=== PATIENT | female | born 1960 | race Caucasian/White ===

== ENCOUNTER 2016-12-19 14:05 | Emergency (ER) | payer OTHER ==
--- NOTE | 2016-12-19 14:11 | UC ---
Lower Extremity/Ankle HPI - HPI Summary HPI Summary: 56 year old female presents with complains of severe right calf pain. She is concerned about DVT so I will sen dher to the ER for U/S and CBC. I spoke to Izabel Mireles. - History of Current Complaint Stated Complaint: RIGHT LEG PAIN X 5 DAYS Time Seen by Provider: 12/19/16 14:08 Hx Last Menstrual Period: 1995 - Allergies/Home Medications Allergies/Adverse Reactions: Allergies Allergy/AdvReac Type Severity Reaction Status Date / Time Bee Venom Allergy Severe Edema Verified 12/19/16 14:24 Latex Allergy Intermediate itch Verified 12/19/16 14:24 Morphine AdvReac Mild Itching Verified 12/19/16 14:24 Home Medications: Home Medications Omeprazole CAP* [Prilosec CAP* 20 MG] 20 mg PO DAILY 12/19/16 [History Confirmed 12/19/16] PMH/Surg Hx/FS Hx/Imm Hx - Surgical History Surgical History: Yes Surgery Procedure, Year, and Place: 2 . left elbow surgery. partial hysterectomy. thyroidectomy. fatty tumor removed from back - Family History Known Family History: Positive: Hypertension - Social History Alcohol Use: Rare Substance Use Type: None Smoking Status (MU): Never Smoked Tobacco Review of Systems Constitutional: Negative Skin: Negative Eyes: Negative ENT: Negative Respiratory: Negative Cardiovascular: Negative Gastrointestinal: Negative Genitourinary: Negative Motor: Negative Neurovascular: Negative Musculoskeletal: Negative, Calf Tenderness - right Neurological: Negative Psychological: Negative All Other Systems Reviewed And Are Negative: Yes Physical Exam Triage Information Reviewed: Yes Eye Exam: Normal ENT Exam: Normal Dental Exam: Normal Neck exam: Normal Neck: Positive: 1 Respiratory Exam: Normal Cardiovascular Exam: Normal Abdominal Exam: Normal Musculoskeletal: Positive: Other: - right calf pain Neurological Exam: Normal Psychological Exam: Normal Skin Exam: Normal Lower Extremity Course/Dx - Differential Dx/Diagnosis Provider Diagnoses: right calf pain/swelling Discharge - Discharge Plan Condition: Stable Disposition: AGAINST MEDICAL ADVICE Patient Education Materials: Muscle Cramp (ED), Leg Pain (ED) Referrals: COOPER Scott [Primary Care Provider] -
[2016-12-19 14:24] VITALS: BP 114/70
== END 2016-12-19 14:35 | disposition left against medical advice (07) ==
LOC: UCCORT 14:05
DX: M79.661 Pain in right lower leg (principal); Z88.5 Allergy status to narcotic agent
CPT/HCPCS: 99212; G0463

== ENCOUNTER 2017-02-13 15:10 | Emergency (ER) | payer OTHER ==
[2017-02-13 15:31] VITALS: BP 118/70
[2017-02-13] MEDS ORDERED: Ketorolac INJ* 30 MG/ML 1 ML VIAL IM ONE (15:58)
--- NOTE | 2017-02-13 16:03 | UC ---
Minor Trauma HPI - HPI Summary HPI Summary: 56 yo female tripped and fell on recently resurfaced side walk hit right knee and chin wrenched back occurred yesterday no loc states she can not tolerate NSAIDS - History of Current Complaint Chief Complaint: UCLowerExtremity Stated Complaint: RIGHT SIDE BACK,KNEE,FACE INJURY FALL 02/13 Time Seen by Provider: 02/13/17 15:50 Hx Obtained From: Patient Hx Last Menstrual Period: 1995 Onset/Duration: Sudden Onset, Lasting Hours Onset Of Pain: Immediate Severity Initially: Moderate Severity Currently: Moderate Pain Intensity: 6 Pain Scale Used: 0-10 Numeric Mechanism Of Injury: Fall From A Standing Position Aggravating Factor(s): Movement Alleviating Factor(s): Rest Associated Signs And Symptoms: Negative: Loss Of Consciousness, Ecchymosis, Swelling - Risk Factors Penetrating Injury Risk Factors: Negative - Allergies/Home Medications Allergies/Adverse Reactions: Allergies Allergy/AdvReac Type Severity Reaction Status Date / Time Bee Venom Allergy Severe Edema Verified 02/13/17 15:31 Latex Allergy Intermediate itch Verified 02/13/17 15:31 Morphine AdvReac Mild Itching Verified 02/13/17 15:31 Home Medications: Home Medications Levothyroxine TAB* [Synthroid 75 MCG TAB*] 75 mcg PO DAILY 02/13/17 [History Confirmed 02/13/17] Prazosin CAP* [Minipress CAP*] 5 mg PO BEDTIME 02/13/17 [History Confirmed 02/13] PMH/Surg Hx/FS Hx/Imm Hx Previously Healthy: Yes Endocrine History: Thyroid Disease, Hypothyroidism, Dyslipidemia Cardiovascular History: Hypertension Cancer History: Other Other Cancer History: thyroid - Surgical History Surgical History: Yes Surgery Procedure, Year, and Place: 2 . left elbow surgery. partial hysterectomy. thyroidectomy. fatty tumor removed from back - Family History Known Family History: Positive: Hypertension - Social History Alcohol Use: None Substance Use Type: None Smoking Status (MU): Never Smoked Tobacco Review of Systems Constitutional: Negative Skin: Negative Eyes: Negative ENT: Negative Respiratory: Negative Cardiovascular: Negative Gastrointestinal: Negative Genitourinary: Negative Motor: Negative Neurovascular: Negative Musculoskeletal: Arthralgia Neurological: Negative Psychological: Negative Is Patient Immunocompromised?: No All Other Systems Reviewed And Are Negative: Yes Physical Exam Triage Information Reviewed: Yes Appearance: Well-Appearing, No Pain Distress, Well-Nourished Vital Signs: Initial Vital Signs Temp 98.1 F 02/13/17 15:24 Pulse 87 02/13/17 15:24 Resp 20 02/13/17 15:24 BP 118/70 02/13/17 15:24 Pulse Ox 96 02/13/17 15:24 Vital Signs Reviewed: Yes Eyes: Positive: Conjunctiva Clear ENT: Positive: Hearing grossly normal, TMs normal. Negative: Nasal congestion, Nasal drainage, Trismus, Muffled/hoarse voice Dental: Positive: Other: - edentulous Neck: Positive: Supple, Nontender, No Lymphadenopathy Respiratory: Positive: Lungs clear, Normal breath sounds, No respiratory distress, No accessory muscle use Cardiovascular: Positive: RRR, No Murmur Musculoskeletal: Positive: ROM Intact, No Edema Neurological: Positive: Alert Psychological Exam: Normal Skin Exam: Other - contusion right knee Diagnostics - Radiology No standard instances Xray Interpretation: No Acute Changes Radiology Interpretation Completed By: Radiologist Minor Trauma Course/Dx - Differential Dx/Diagnosis Provider Diagnoses: acute lumbar myofascial strain/spasm. jaw contusion. knee contusion (R) Discharge - Discharge Plan Condition: Stable Disposition: HOME Patient Education Materials: Contusion in Adults (ED), Low Back Strain (ED) Referrals: COOPER Scott [Primary Care Provider] - Images Head: 1 - tender/swollen/no TMJ crepitus Front/Back of Body, Lg ([place]): 1 - contusion/mild swelling/FROM/normal gait/no effusion 2 - tender
--- NOTE | 2017-02-13 16:40 | RAD ---
INDICATION: Mandibular injury COMPARISON: None TECHNIQUE: Multiple views of the mandible were obtained FINDINGS: No acute plain radiographic abnormalities of the mandible are identified. If there is persistent concern, CT imaging can be obtained. The patient is edentulous. IMPRESSION: NEGATIVE PLAIN RADIOGRAPHIC EVALUATION OF THE MANDIBLE
== END 2017-02-13 17:08 | disposition home or self-care (01) ==
LOC: UCCORT 15:10
DX: S00.83XA Contusion of other part of head, initial encounter (principal); S39.012A Strain of muscle, fascia and tendon of lower back, initial encounter; S80.01XA Contusion of right knee, initial encounter; W18.30XA Fall on same level, unspecified, initial encounter; Y92.9 Unspecified place or not applicable
CPT/HCPCS: 70110; 96372; 99212; G0463; J1885

== ENCOUNTER 2017-04-15 15:17 | Emergency (ER) | payer OTHER ==
--- NOTE | 2017-04-15 15:30 | UC ---
Lower Extremity/Ankle HPI - HPI Summary HPI Summary: 56 year old female presents with right knee pain secondary to a fall. She was in the ER 3 days ago and a xray of her knee was negative. - History of Current Complaint Stated Complaint: RIGHT KNEE AND LEG PAIN Time Seen by Provider: 04/15/17 15:30 Hx Obtained From: Patient Hx Last Menstrual Period: 1995 Onset/Duration: Sudden Onset Severity Initially: Moderate Severity Currently: Moderate Pain Scale Used: 0-10 Numeric - 7 - Allergies/Home Medications Allergies/Adverse Reactions: Allergies Allergy/AdvReac Type Severity Reaction Status Date / Time Bee Venom Allergy Severe Edema Verified 04/15/17 15:47 Latex Allergy Intermediate itch Verified 04/15/17 15:47 Morphine AdvReac Mild Itching Verified 04/15/17 15:47 PMH/Surg Hx/FS Hx/Imm Hx Previously Healthy: Yes - Surgical History Surgical History: Yes Surgery Procedure, Year, and Place: 2 . left elbow surgery. partial hysterectomy. thyroidectomy. fatty tumor removed from back - Family History Known Family History: Positive: Hypertension - Social History Alcohol Use: None Substance Use Type: None Smoking Status (MU): Never Smoked Tobacco Review of Systems Constitutional: Negative Skin: Negative Eyes: Negative ENT: Negative Respiratory: Negative Cardiovascular: Negative Gastrointestinal: Negative Genitourinary: Negative Motor: Negative Neurovascular: Negative Musculoskeletal: Decreased ROM, Myalgia, Other: - right knee pain/swelling Neurological: Negative Psychological: Negative All Other Systems Reviewed And Are Negative: Yes Physical Exam Triage Information Reviewed: Yes Vital Signs Reviewed: Yes Eye Exam: Normal ENT Exam: Normal Dental Exam: Normal Neck exam: Normal Neck: Positive: 1 Respiratory Exam: Normal Cardiovascular Exam: Normal Abdominal Exam: Normal Musculoskeletal: Positive: Other: - right knee pain/swelling Neurological Exam: Normal Psychological Exam: Normal Skin Exam: Normal Lower Extremity Course/Dx - Differential Dx/Diagnosis Provider Diagnoses: right knee swelling/pain/strain Discharge - Discharge Plan Condition: Stable Disposition: HOME Prescriptions: Meloxicam(NF) [Mobic(NF)] 7.5 mg PO BID #30 tab Patient Education Materials: Knee Pain (ED), Swollen Joint (ED) Referrals: Kt Calles MD [Medical Doctor] - COOPER Scott [Primary Care Provider] -
[2017-04-15 15:57] VITALS: BP 108/75
== END 2017-04-15 16:01 | disposition home or self-care (01) ==
LOC: UCCORT 15:17
DX: S86.911D Strain of unspecified muscle(s) and tendon(s) at lower leg level, right leg, subsequent encounter (principal); W19.XXXD Unspecified fall, subsequent encounter; Z90.711 Acquired absence of uterus with remaining cervical stump; E89.0 Postprocedural hypothyroidism; Z88.5 Allergy status to narcotic agent; Z91.030 Bee allergy status; Z91.040 Latex allergy status
CPT/HCPCS: 99212; G0463

== ENCOUNTER 2017-07-15 09:47 | Day surgery (SDC) | payer OTHER ==
--- NOTE | 2017-07-11 02:32 | HP ---
PREOPERATIVE HISTORY AND PHYSICAL: DATE OF SURGERY: 07/15/17 DATE OF OFFICE VISIT: 07/07/17 ATTENDING PHYSICIAN: Dr. Nicole Steward.* (DCTATED BY KYLAH LÓPEZ) PROCEDURE: Right knee arthroscopy, partial meniscectomy. CHIEF COMPLAINT: Right knee pain. HISTORY OF PRESENT ILLNESS: Lenka is a 56-year-old female who presents to the clinic for right knee pain due to a meniscus tear as she has failed conservative measures to include physical therapy and has therefore agreed to undergo a right knee arthroscopy, partial meniscectomy with Dr. Steward on . PAST MEDICAL HISTORY: Hypertension, high cholesterol, osteoarthritis, Crohn's, diverticulitis, GERD, history of thyroid cancer, depression, anxiety, fibromyalgia. PAST SURGICAL HISTORY: Two C-sections, thyroidectomy, surgery on her back, bowel obstruction surgery. The patient denies prior complications with anesthesia. MEDICATIONS: 1. Omeprazole 20 mg 1 by mouth every day. 2. Pravastatin 20 mg 1 by mouth daily. 3. Meloxicam 7.5 one by mouth daily. 4. Fluoxetine 40 mg 1 by mouth twice a day. 5. Levothyroxine 137 mcg 1 by mouth daily. 6. Pravastatin 5 mg 1 by mouth daily. 7. Senna 8.6 mg 1 by mouth daily. 8. Aspirin 81 mg 1 daily. 9. Calcitriol 0.5 mcg 1 daily. ALLERGIES: MORPHINE, LATEX, BEE STING and IBUPROFEN. FAMILY HISTORY: Positive for diabetes in her father as well as cancer. SOCIAL HISTORY: She lives with her daughter. She is not working. She denies tobacco, alcohol or illegal drug use. REVIEW OF SYSTEMS: A 14-point review of systems was reviewed with the patient. Positive for the current complaint, otherwise negative. Negative for fever, chills, chest pain, shortness of breath, history of bleeding disorder, history of DVT or PE. PHYSICAL EXAMINATION GENERAL: A 56-year-old well-developed, well-nourished female, in no acute distress. Alert and oriented x3. Appropriate mood and affect. VITAL SIGNS: Height 64.5, weight 191, pulse 66, blood pressure 130/74, respiratory rate 16, BMI 32.3. HEENT: Normocephalic, atraumatic. PERRLA. Throat clear. NECK: Supple. PULMONARY: Lungs clear to auscultation bilaterally. No wheezing, rhonchi, or rales. CARDIOVASCULAR: Regular rate and rhythm. S1 and S2. No murmurs, gallops, or rubs. No edema. ABDOMEN: Positive bowel sounds, soft, nontender. NEUROLOGIC: Alert and oriented x3. Cranial nerves grossly intact. Sensation is intact to light touch. MUSCULOSKELETAL: Skin is intact. No evidence of erythema. Mild effusion. Range of motion 0 to 130. Tender over the patellar facets and medial joint line. Positive Bebe. Pain with deep flexion. Stable with varus and valgus stress. Stable Jessica. Negative posterior drawer. +2 DP pulse. Calves soft, nontender. Sensation is intact to light touch distally. DIAGNOSTIC STUDIES/LAB DATA: MRI of the right knee reveals degenerative meniscus tear with a knee effusion. IMPRESSION: Right knee meniscus tear. PLAN: The patient is scheduled to undergo a right knee arthroscopy, partial meniscectomy with Dr. Steward on 07/15/17. She will follow up in 10 to 14 days for postoperative followup and suture removal. Percocet was sent to the patient 's pharmacy for postop pain management. KYLAH LÓPEZ [id number]/[facility] #: [id number] MTDJanie
[~2017-07-15 09:47] MED LIST: Buffered Lidocaine 0.9% SYRIN* 5 ML/SYR SYRINGE INTRADERM ONE; Dexamethasone IV* 4 MG/ML 1 ML (4 MG) IV SLOW PU ONE; Famotidine IV* 10 MG/ML 2 ML (20 mg) IV ONE
[2017-07-15] MEDS ORDERED: Famotidine IV* 10 MG/ML 2 ML (20 mg) ONE (09:52)
[2017-07-15] MEDS ORDERED: Dexamethasone IV* 4 MG/ML 1 ML (4 MG) ONE (09:52)
[2017-07-15] MEDS ORDERED: ceFAZolin 2 GM in 100 MLS NS (*) BAG IVPB ONE (09:52)
[2017-07-15] MEDS ORDERED: Lidocaine 1% MPF wEPI 200,000* 30 ML SDV ONE (10:43)
[2017-07-15] MEDS ORDERED: Bupivacaine 0.25% SDV* 30 ML ONE (10:43)
[2017-07-15] MEDS ORDERED: Midazolam* 1 MG/ML 2 ML VIAL (2 MG) ONE (11:06)
[2017-07-15] MEDS ORDERED: fentaNYL* 50 MCG/ML 2 ML VIAL (100 MCG VIAL) ONE ×2 (11:06→12:10)
[2017-07-15] MEDS ORDERED: Lidocaine 2% PF * 5 ML VIAL ONE (11:11)
[2017-07-15] MEDS ORDERED: Propofol* 10 MG/ML 20 ML BTL IV PUSH ONE (11:11)
[2017-07-15] MEDS ORDERED: Ketorolac INJ* 30 MG/ML 1 ML VIAL ONE (11:23)
[2017-07-15] MEDS ORDERED: fentaNYL* 50 MCG/ML 2 ML VIAL (100 MCG VIAL) IV PRN (11:46)
[2017-07-15] MEDS ORDERED: Naloxone* 0.4 MG/ML 1 ML VIAL IV PRN (11:46)
[2017-07-15] MEDS ORDERED: HYDROcodone/ACETAMIN 5-325 MG* 1 TAB PO PRN (11:46)
[2017-07-15] MEDS ORDERED: oxyCODONE/Acetamin 5/325 MG* TAB PO PRN (11:46)
[2017-07-15] MEDS ORDERED: PROCHLORPERAZINE INJ 5 MG/ML 2 ML VIAL IV PRN (11:46)
[2017-07-15] MEDS ORDERED: methylPREDNISolone ACETATE 80* 80 MG/ML 1 ML VIAL ONE (12:01)
[2017-07-15] MEDS ORDERED: Ondansetron INJ* 2 MG/ML VIAL ONE (12:02)
[2017-07-15 13:31] VITALS: BP 102/50
[2017-07-15] MEDS ORDERED: oxyCODONE/Acetamin 5/325 MG* TAB ONE (13:46)
--- NOTE | 2017-07-16 12:14 | OP ---
CC: PCP OPERATIVE REPORT: DATE OF OPERATION: 07/15/17 DATE OF : 56 ATTENDING SURGEON: Nicole Steward MD INFORMATION WRITER: None available. ANESTHESIOLOGIST: Dr. Diaz. ANESTHESIA: General. PRE-OP DIAGNOSIS: Right knee medial meniscus tear with mild osteoarthritis. POST-OP DIAGNOSES: Right knee mild osteoarthritis to the medial and patellofemoral compartment, medi al meniscus tear with unstable flap at the posterior root and lateral meniscal fraying. OPERATIVE PROCEDURES: Right knee arthroscopy with: 1. Partial medial and partial lateral meniscectomy. 2. Chondroplasty of the medial femoral condyle and patella. 3. Synovectomy. COMPLICATIONS: None. ESTIMATED BLOOD LOSS: Minimal. INDICATIONS: Lenka Conde is a 56-year-old female with medially based catching and locking symptoms. She has failed conservative treatment including physical therapy, injection, and anti-inflammatories . She had minimal drainage based on preoperative films and an unstable acute tear of the medial meni scus. Risks and benefits of surgery were discussed at length and included but not limited to bleedin g, infection, damage to nerves, vessels, surrounding structures, wound nonhealing, persistent pain, n eed for surgery, scarring, stiffness, incomplete release of symptoms, and risks of anesthesia. She h as elected to proceed. DESCRIPTION OF PROCEDURE: The patient was greeted in the preoperative area by the attending surgeon. Correct extremity was marked and consent was confirmed. The patient was brought back to the operat ing suite, where she was placed in a supine position on the operating room table. She then underwent general anesthesia and LMA intubation after which an unsterile tourniquet was placed high on the pro ximal thigh. The lateral post was positioned. The right leg was prepped and draped in the usual jyotsna rile fashion beginning with chlorhexidine soap scrub and alcohol wipe and a final prep with ChloraPre p. After appropriate surgical pause indicating site, side, and procedure and administration of antibioti cs, the knee was intra-articularly injected with 1% lidocaine with epi. The lateral portal was made in an outside-in fashion. The scope was brought into the joint. Patellofemoral joint had areas of g rade 0 changes in the trochlea, small areas of grade 1 and 2 changes with unstable flaps of the mcneal la. The medial and lateral gutters were intact without any loose debris. The scope was brought into the joint. There was very hyperemic synovitic tissue that was present. The electrocautery device w as used to maintain hemostasis. ACL and PCL were intact, but again very hyperemic. Medial compartme nt was examined. There were grade 2 changes with unstable flaps and medial meniscus had evidence of an acute displaced flap at the posterior root as well as degenerative and acute tearing about the pos terior body of the meniscus. Biters and silvano were used to debride the flap back and debride the u nstable piece of the meniscal flap at the root. Once this was completed, the knee was placed in figu re-of-four position. The lateral compartment was examined. There were grade 0 to 1 changes at the l ateral femoral condyle and lateral plateau and there was unstable fraying in the lateral body of the meniscus. Shaver was used to debride this back to stable layer. Once the chondroplasties were compl eted, all fluid and debris were removed from the knee. The knee was thoroughly lavaged. The wounds were irrigated with sterile saline and portals were closed with 3-0 nylon. Sterile dressings were ap plied. The knee was intra-articularly injected with 0.25% Marcaine plain with 80 mg of Depo-Medrol. She was awoken from anesthesia and transferred to PACU in stable condition. POSTOPERATIVE PLAN: She will be weightbearing as tolerated for 3 to 5 days. She will be allowed to work on range of motion starting tomorrow. She will be using a walker. DVT prophylaxis considered, but deferred due to no previous personal or family history. I will see the patient back in 14 days. [id number]/[facility] #: [id number]
== END 2017-07-15 14:12 | disposition home or self-care (01) ==
LOC: OR 09:47
PROVIDERS: ATTEND Orthopaedic Surgery
DX: M23.203 Derangement of unspecified medial meniscus due to old tear or injury, right knee (principal); M17.11 Unilateral primary osteoarthritis, right knee; I10 Essential (primary) hypertension; F41.8 Other specified anxiety disorders; M79.7 Fibromyalgia; E78.00 Pure hypercholesterolemia, unspecified; Z85.850 Personal history of malignant neoplasm of thyroid
CPT/HCPCS: A9270-GY; J1040; J1100; J1885; J2001; J2250; J2405; J2704; J3010

== ENCOUNTER 2017-09-21 14:32 | Emergency (ER) | payer OTHER ==
[2017-09-21 14:49] VITALS: BP 129/67
--- NOTE | 2017-09-21 14:56 | UC ---
Skin Complaint HPI - HPI Summary HPI Summary: Pt presents with c/o left side tender "lump". Pt had fatty tumor removed "a few years ago" by Dr. Gordon in same area. - History of Current Complaint Chief Complaint: UCSkin Time Seen by Provider: 09/21/17 14:39 Stated Complaint: BACK SKIN COMPLAINT Hx Obtained From: Patient Hx Last Menstrual Period: 1995 ?: No Onset/Duration: Gradual Onset, Lasting Days, Still Present Skin Exposure Onset/Duration: Days Ago Timing: Constant Onset Severity: Mild Current Severity: Mild Pain Intensity: 0 Location: Discrete - right flank Character: Raised, Painful Aggravating Factor(s): Touch Alleviating Factor(s): Nothing Associated Signs & Symptoms: Positive: Tenderness - Allergy/Home Medications Allergies/Adverse Reactions: Allergies Allergy/AdvReac Type Severity Reaction Status Date / Time bee venom protein (honey bee) Allergy Severe Edema Verified 09/21/17 14:50 latex Allergy Intermediate Itching Verified 09/21/17 14:50 morphine AdvReac Mild Itching Verified 09/21/17 14:50 Home Medications: Home Medications predniSONE TAB* [Deltasone TAB*] 10 mg PO DAILY 09/21/17 [History Confirmed ] Review of Systems Constitutional: Negative Skin: Negative Eyes: Negative ENT: Negative Respiratory: Negative Cardiovascular: Negative Gastrointestinal: Negative Genitourinary: Negative Motor: Negative Neurovascular: Negative Musculoskeletal: Negative Neurological: Negative Psychological: Negative Is Patient Immunocompromised?: No All Other Systems Reviewed And Are Negative: Yes PMH/Surg Hx/FS Hx/Imm Hx Previously Healthy: Yes - Surgical History Surgical History: Yes Surgery Procedure, Year, and Place: 2 . left elbow surgery. partial hysterectomy. thyroidectomy. fatty tumor removed from back. arthritis - Family History Known Family History: Positive: Hypertension - Social History Lives: With Family Alcohol Use: None Substance Use Type: None Smoking Status (MU): Never Smoked Tobacco Have You Smoked in the Last Year: No Physical Exam Triage Information Reviewed: Yes Appearance: Well-Appearing Vital Signs: Initial Vital Signs Temp 98.5 F 09/21/17 14:45 Pulse 69 09/21/17 14:45 Resp 18 09/21/17 14:45 BP 129/67 09/21/17 14:45 Pulse Ox 98 09/21/17 14:45 Vital Signs Reviewed: Yes Eye Exam: Normal ENT: Positive: Hearing grossly normal Dental Exam: Other - no teeth Neck exam: Normal Respiratory: Positive: No respiratory distress Musculoskeletal Exam: Normal Neurological Exam: Normal Psychological Exam: Normal Skin Exam: Other - soft, tender, moveable mass right flank, 4 cm scar at mass location. mass measures ~ 4 cm X 2 cm Course/Dx - Differential Diagnoses - Skin Complaint Differential Diagnoses: Abscess - Diagnoses Provider Diagnoses: soft tissue mass Discharge - Sign-Out/Discharge Documenting (check all that apply): Discharge/Admit/Transfer - Discharge Plan Condition: Stable Disposition: HOME Patient Education Materials: Soft Tissue Mass (ED) Referrals: COOPER Scott [Primary Care Provider] - If Needed Gonzalo Mo [Medical Doctor] - If Needed Ramakrishna Hatch MD [Medical Doctor] - If Needed Conrado Maddox MD [Medical Doctor] - If Needed Janet Vu MD [Medical Doctor] - If Needed Reinaldo Lentz MD [Medical Doctor] - If Needed Additional Instructions: Please follow up with your PCP or return to clinic as needed. We have provided a list of providers that have available appointments in the [place] area as requested. - Billing Disposition and Condition Condition: STABLE Disposition: HOME
== END 2017-09-21 15:12 | disposition home or self-care (01) ==
LOC: UCCORT 14:32
DX: M79.9 Soft tissue disorder, unspecified (principal); Z88.5 Allergy status to narcotic agent
CPT/HCPCS: 99211; G0463

== ENCOUNTER 2017-11-02 11:50 | Emergency (ER) | payer OTHER ==
[2017-11-02 12:11] VITALS: BP 105/67
--- NOTE | 2017-11-02 12:44 | ED ---
Abdominal Pain/Female - HPI Summary HPI Summary: 57 yr old female with abdominal pain for about 10 days, progressively worse, located RUQ area and across the midline, associated bloating, and has had black stool. Denies fever, chills. She had colonscopy 10 days ago at [facility]. - History of Current Complaint Chief Complaint: UCGI Stated Complaint: STOMACH CRAMPING Time Seen by Provider: 11/02/17 12:30 Hx Last Menstrual Period: 1995 Pain Intensity: 8 Allergies/Adverse Reactions: Allergies Allergy/AdvReac Type Severity Reaction Status Date / Time bee venom protein (honey bee) Allergy Severe Edema Verified 09/21/17 14:50 latex Allergy Intermediate Itching Verified 09/21/17 14:50 pregabalin [From Lyrica] Allergy Altered Verified 11/02/17 12:04 Mental Status morphine AdvReac Mild Itching Verified 09/21/17 14:50 Home Medications: Home Medications Linaclotide [Linzess] 72 mcg PO DAILY 11/02/17 [History Confirmed 11/02/17] Magnesium Oxide [Magnesium] 400 mg PO DAILY 11/02/17 [History Confirmed 11/02/17 ] Oxybutynin Chloride [Oxybutynin Chloride ER] 10 mg PO DAILY 11/02/17 [History Confirmed 11/02/17] Polyethylene Glycol 3350 [Miralax] 17 gm PO DAILY 11/02/17 [History Confirmed ] PMH/Surg Hx/FS Hx/Imm Hx Endocrine/Hematology History: Reports: Hx Thyroid Disease - nodule Denies: Hx Diabetes Cardiovascular History: Denies: Hx Hypertension, Hx Pacemaker/ICD Respiratory History: Denies: Hx Asthma, Hx Chronic Obstructive Pulmonary Disease (COPD) GI History: Reports: Hx Gastroesophageal Reflux Disease - ON MEDICATION FOR Denies: Hx Ulcer Musculoskeletal History: Reports: Hx Arthritis - HANDS, RIGHT KNEE Sensory History: Reports: Hx Contacts or Glasses - GLASSES Denies: Hx Hearing Aid Opthamlomology History: Reports: Hx Contacts or Glasses - GLASSES Neurological History: Reports: Hx Headaches, Hx Migraine - HX OF- NONE RECENTLY Psychiatric History: Reports: Hx Anxiety, Hx Depression - ON MEDICATION FOR Denies: Hx Panic Disorder - Cancer History Cancer Type, Location and Year: THYROID - Surgical History Surgery Procedure, Year, and Place: 2 . left elbow surgery. partial hysterectomy. thyroidectomy. fatty tumor removed from back. COLONOSCOPY/ UPPER GI Hx Anesthesia Reactions: No Infectious Disease History: No Infectious Disease History: Denies: Hx Clostridium Difficile, Hx Hepatitis, Hx Human Immunodeficiency Virus (HIV), Hx of Known/Suspected MRSA, Hx Shingles, Hx Tuberculosis, Hx Known/ Suspected VRE, Hx Known/Suspected VRSA, History Other Infectious Disease, Traveled Outside the [place] in Last 30 Days - Family History Known Family History: Positive: Hypertension - Social History Alcohol Use: None Substance Use Type: Reports: None Smoking Status (MU): Never Smoked Tobacco Have You Smoked in the Last Year: No Review of Systems Constitutional: Negative Positive: Abdominal Pain All Other Systems Reviewed And Are Negative: Yes Physical Exam Triage Information Reviewed: Yes Vital Signs On Initial Exam: Initial Vitals Temp Pulse Resp BP Pulse Ox 98.2 F 84 17 105/67 98 11/02/17 12:01 11/02/17 12:01 11/02/17 12:01 11/02/17 12:01 11/02/17 12:01 Vital Signs Reviewed: Yes Appearance: Positive: Well-Appearing, No Pain Distress Skin: Positive: Warm, Skin Color Reflects Adequate Perfusion Head/Face: Positive: Normal Head/Face Inspection Eyes: Positive: EOMI ENT: Positive: Normal ENT inspection Neck: Positive: Nontender Respiratory/Lung Sounds: Positive: Clear to Auscultation, Breath Sounds Present Cardiovascular: Positive: RRR. Negative: Murmur Abdomen Description: Positive: Nontender, Distended. Negative: Guarding Musculoskeletal: Positive: Strength/ROM Intact Neurological: Positive: Sensory/Motor Intact, Alert, Oriented to Person Place, Time, CN Intact II-III Psychiatric: Positive: Normal - [place] Coma Scale Best Eye Response: 4 - Spontaneous Best Motor Response: 6 - Obeys Commands Best Verbal Response: 5 - Oriented Coma Scale Total: 15 Diagnostics - Vital Signs Vital Signs Temp Pulse Resp BP Pulse Ox 11/02/17 12:01 98.2 F 84 17 105/67 98 - Laboratory Lab Statement: Any lab studies that have been ordered have been reviewed, and results considered in the medical decision making process. Abdominal Pain Fem Course/Dx - Course Course Of Treatment: 57 yr old declines ambulance tranpsort to hospital for her abdominal pain. She verbalizes she will get there on her own without ambulance. - Diagnoses Provider Diagnoses: Abdominal pain Discharge - Sign-Out/Discharge Documenting (check all that apply): Discharge/Admit/Transfer - Discharge Plan Condition: Good Disposition: TRANS HIGHER LVL OF CARE FAC Patient Education Materials: Acute Abdominal Pain (ED) Referrals: COOPER Scott [Primary Care Provider] - Additional Instructions: [facility]: Emergency Room Emergency room in [place], [place] DirectionsWebsite Address: [address] [place] [address] [place] [address] - Billing Disposition and Condition Condition: GOOD Disposition: Trans Higher Lvl of Care Fac
== END 2017-11-02 12:42 | disposition short-term general hospital (02) ==
LOC: UCCORT 11:50
DX: R10.11 Right upper quadrant pain (principal); Z88.5 Allergy status to narcotic agent; Z88.8 Allergy status to other drugs, medicaments and biological substances; Z91.030 Bee allergy status; Z91.040 Latex allergy status; K21.9 Gastro-esophageal reflux disease without esophagitis; F41.8 Other specified anxiety disorders
CPT/HCPCS: 99212; G0463

== ENCOUNTER 2018-05-02 12:37 | Emergency (ER) | payer OTHER ==
--- OUTSIDE RECORDS SUMMARY | 2018-05-02 12:46 | XMS REPORT ---
:1960 External Reference #:[id number] Author Organization [facility] Address [address], [address] [place] [address] Phone [phone] Care Team Providers Name Role Phone Cole Lopez PA Care Team Information Executive Asst Unavailable Cole Lopez PA Primary Care Physician Unavailable Payers Type Date Identification Numbers Payment Provider Subscriber Commercial Policy Number: [id number] [place] [employer] Lenka Edgar PayID: [id number] [address] [place] [address] Medicaid Expires: 2013 Policy Number: [id number] Medicaid Lenka Edgar Group Name: 1 1 [address] PayID: [id number] [place] [address] Problems Date Description Provider Status Onset: 03/08/2013 Mixed hyperlipidemia Active Onset: 10/13/2012 Idiopathic peripheral neuropathy Jenna Salgado M.D. Active Onset: 10/13/2012 Hypothyroidism Jenna Salgado M.D. Active Onset: 09/24/2012 Essential hypertension Rose Raya NP Active Onset: 12/26/2016 Hypoxemia David Wiley M.D., Active FACC Onset: 12/26/2016 Dyspnea David Wiley M.D., Active FACC Onset: 12/26/2016 Premature beats David Wiley M.D., Active FACC Onset: 08/14/2017 Constipation Shaggy Nye MD Active Onset: 08/14/2017 Hydronephrosis Hanna Douglas M.D. Active Onset: 08/14/2017 Abnormal findings diagnostic Shaggy Nye MD Active imaging of liver+biliary tract Onset: 09/29/2017 Lipoma of skin Ramakrishna Hatch MD,FACS Active Onset: 10/28/2017 Abdominal pain Shaggy Nye MD Active Onset: 10/28/2017 Duodenitis Shaggy Nye MD Active Onset: 10/28/2017 Liver function tests abnormal Shaggy Nye MD Active Onset: 10/28/2017 Flatulence, eructation and gas Shaggy Nye MD Active pain Onset: 10/28/2017 Gastroduodenitis Shaggy Nye MD Active Onset: 10/28/2017 Gastro-esophageal reflux disease Shaggy Nye MD Active with esophagitis Onset: 11/04/2017 Right lower quadrant pain Ramakrishna Hatch MD,FACS Active Onset: 11/23/2017 Bladder muscle dysfunction - Hanna Douglas M.D. 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 Work Status Disabled Hand Dominance Right-handed ADL's/IADL's Independent with all ADL's Cigarette Use Never Smoked Cigarettes ETOH Use Denies alcohol use ETOH Use Has consumed alcohol in the past Smoking Patient denies history of smoking Recreational Drug Use Denies Drug Use Daily Caffeine Consumes on average 2 cups of regular coffee per day Exercise Type/Frequency Exercises sporadically Allergies, Adverse Reactions, Alerts Date Description Reaction Status Severity Comments 03/08/2013 Morphine active 03/08/2013 Lasix active 03/08/2013 Bee Sting active 11/04/2016 Lyrica active 11/13/2008 NKDA inactive Medications Medication Date Status Form Strength Qnty SIG Indications Ordering Provider Lactulose 03/11 Active Solution 20GM/30ML 900ml 15 K59.00 Rachael /2018 milliliters , Doug, by mouth twice a day as needed Miralax 01/27 Active Powder 3350NF 1020u 1 tablespoon nits with large MD Popeye glass of water every day Fluoxetine HCL Active Capsules 40mg 60cap 1 by mouth Salgado, / s twice a day MD Jenna Pravastatin Active Tablets 20mg 30tab Take One Salgado, Sodium s Tablet By Jenna Mouth Every , Day Aspirin Active Tablets 81mg 1 by mouth Unknown /0000 DR every day Prazosin HCL Active Capsules 5mg Take Two Unknown /0000 Capsule By Mouth Every Day @ hs Oxybutynin Active Tablets 10mg 1 by mouth Unknown Chloride ER / ER 24HR every day Meloxicam Active Tablets 15mg 1 by mouth Unknown /0000 every day with food Calcitriol Active Capsules 0.5mcg Take One Unknown /0000 Capsule By Mouth Every Day Senna Active Tablets 8.6mg 2 tabs daily Unknown / Omeprazole Active Capsules 20mg Take One Unknown [address] DR Capsule By Mouth Daily Levothyroxine Active Tablets 125mcg Take One Unknown Sodium /0000 Tablet By Mouth Every Day Magnesium Oxide Active Tablets 400(241.3 Take One Unknown /0000 Mg) mg Tablet By Mouth Twice A Day For Muscle Spasm Neomycin Sulfate 03/03 Hx Tablets 500mg 28tab 1 tabs by s mouth twice a MD Popeye - day 03/11 Toviaz 11/24 Hx Tablets 8mg 30tab 1 by mouth N32.81 Misael ER 24HR s every day Maikel Ferreira Myrbetriq 11/23 Hx Tablets 50mg 30tab 1 by mouth N32.81 Misael ER 24HR s every day Sanya Ferreira M.D. 11/24 Diclofenac 11/04 Hx Tablets 100mg 30tab 1 by mouth [place], Sodium ER 24HR s every day Abdoul with food Maikel Golytely 03/26 Hx Solution 236gm drink half R10.9 Rec the evening MD Popeye before and half the morning of the procedure (1 cup every 10') Gabapentin 06/14 Hx Capsules 300mg 1 tab po tid Marianna - as per Jenna neurology , note 06/2013 Zolmitriptan 05/18 Hx Tablets 5mg 9tabs 1 tab by Marianna mouth at Jenna start of MD headache, may repeat dose after 2 hours if headache not resolved Naproxen 12/28 Hx Tablets 375mg 60tab 1 po bid with Marianna s food MD Jenna Prazosin HCL Hx Capsules 1mg 120ca 4 Caps At hs Marianna ps MD Jenna Zolpidem Hx Tablets 10mg 30tab 1 tab by Marianna, Tartrate / s mouth prn Jenna jorge MD Reference #: [id number] Levothyroxine Hx Tablets 125 30tab 1 po qd Marianna, Sodium s MD Jenna Calcium Hx Tablets 600-400mg 30tab 1 po bid Marianna, Carbonate-Vitami -Unit s Jenna Lima MD Omeprazole Hx Capsules 20mg 30cap [address] jhony Segundo MD 11/09 Meclizine HCL Hx Tablets 25mg 30tab Take One Salgado, s Tablet By Jenna - Mouth Three MD 09/29 Times A Day as Needed For Vertigo Hydroxyzine HCL Hx Tablets 50mg 30tab Take Two Salgado, s Tablets By Jenna Mouth At MD Bedtime as Needed Metoprolol Hx Tablets 25mg 30tab Take One Salgado, Tartrate s Tablet By Jenna Mouth Every , Day Gabapentin Hx Tablets 600mg 1 by mouth Unknown three times a day Senna Laxative Hx Tablets 8.6mg 2 tabs at Unknown / bedtime Miralax Hx Powder 3350NF 1 tablespoon in 8 ounces - of water a Calcitriol Hx Capsules 0.5mcg 1 by mouth Unknown every day - 09/29 Gavilyte-N With Hx Solution 420gm Take as Unknown Flavor Pack / Rec Directed For 1 Day Tramadol HCL Hx Tablets 50mg Zeus MD Maikol Martiexon-S Hx Tablets 8.6-50mg Take Two Unknown /0000 Tablets bid - 09/29 Meloxicam Hx Tablets 7.5mg Take One Unknown /0000 Tablet By - Mouth Every Meclizine HCL Hx Tablets 25mg Take One Unknown /0000 Tablet By - Mouth Three 11/03 Times A as Needed For Vertigo Meclizine HCL Hx Tablets 12.5mg Take Two Unknown /0000 Tablets By - Mouth Once as 11/03 Kristalose Hx Packet 10gm Use 1 Packet Unknown /0000 Once Daily Dicyclomine HCL Hx Tablets 20mg Pb, MD Reinaldo Ondansetron Hx Tablets 4mg Pb, Dispers MD Reinaldo Acidophilus/Citr Hx Tablets Take One Unknown us Pectin /0000 Tablet By Mouth Twice A Day Ciprofloxacin Hx Tablets 500mg Take One Unknown HCL /0000 Tablet By Mouth Every 12 Hours For 2 More Weeks Metronidazole Hx Tablets 500mg Take One Unknown /0000 Tablet By Mouth Every 8 Hours For 12 More Days Cyclobenzaprine Hx Tablets 5mg Take One Unknown HCL /0000 Tablet By Mouth AT Bedtime Nystatin Hx Cream [id number] Use as /0000 t/GM Directed Magnesium Oxide Hx Capsules 400mg 1 by mouth Unknown /0000 twice day - 11/09 Prednisone Hx Tablets 10mg start at 6 Unknown /0000 tabs by mouth - every day and 10/28 decrease one tab each day until gone Cephalexin Hx Capsules 500mg 1 tab by Unknown /0000 mouth every - six hours. 11/09 Linzess Hx Capsules 72mcg 1 by mouth Unknown /0000 every day for - constipation 11/23 Miralax Hx Powder 255gm with 64 Unknown /0000 oz of what ever she wants to drink and drink it all Polyethylene Hx Powder 3350NF Mix 17GM In Unknown Glycol 3350 /0000 Liquid Two Times A Day as Needed For Constipation Senexon-S Hx Tablets 8.6-50mg Take Two Unknown /0000 Tablets By Mouth Every Day as Needed Neomycin Sulfate Hx Tablets 500mg 28tab 1 tabs by Young /0000 s mouth twice a MD Popeye - day 03/12 Vital Signs Date Vital Result Comment 04/30/2018 BP Systolic Sitting Right Arm 120 mmHg BP Diastolic Sitting Right Arm 84 mmHg Heart Rate 65 /min Respiratory Rate 18 /min Height 66 inches 5'6" Weight 192.00 lb BMI (Body Mass Index) 31.0 kg/m2 BSA (Body Surface Area) 1.97 m2 [place] body weight in kilograms 59 O2 % BldC Oximetry 94 % Ora 04/15/2018 BP Systolic Sitting Left Arm 112 mmHg BP Diastolic Sitting Left Arm 77 mmHg Heart Rate 97 /min Respiratory Rate 16 /min Height 66 inches 5'6" Weight 191.00 lb BMI (Body Mass Index) 30.8 kg/m2 BSA (Body Surface Area) 1.96 m2 [place] body weight in kilograms 59 O2 % BldC Oximetry 97 % 03/11/2018 BP Systolic Sitting Left Arm 114 mmHg BP Diastolic Sitting Left Arm 80 mmHg Heart Rate 62 /min Respiratory Rate 18 /min Height 66 inches 5'6" Weight 194.00 lb BMI (Body Mass Index) 31.3 kg/m2 BSA (Body Surface Area) 1.97 m2 [place] body weight in kilograms 59 01/27/2018 BP Systolic Sitting Left Arm 116 mmHg BP Diastolic Sitting Left Arm 72 mmHg Heart Rate 67 /min Respiratory Rate 16 /min Height 66 inches 5'6" Weight 189.00 lb BMI (Body Mass Index) 30.5 kg/m2 BSA (Body Surface Area) 1.95 m2 [place] body weight in kilograms 59 O2 % BldC Oximetry 96 % 12/16/2017 BP Systolic Sitting Right Arm 122 mmHg BP Diastolic Sitting Right Arm 70 mmHg Heart Rate 88 /min Respiratory Rate 19 /min Height 66 inches 5'6" Weight 192.00 lb BMI (Body Mass Index) 31.0 kg/m2 BSA (Body Surface Area) 1.97 m2 [place] body weight in kilograms 59 O2 % BldC Oximetry 94 % 11/23/2017 BP Systolic 129 mmHg BP Diastolic 76 mmHg Body Temperature 98.3 F Heart Rate 80 /min Respiratory Rate 16 /min Height 66 inches 5'6" Weight 194.12 lb BMI (Body Mass Index) 31.3 kg/m2 BSA (Body Surface Area) 1.97 m2 [place] body weight in kilograms 59 O2 % BldC Oximetry 95 % Pain Level 0 11/04/2017 BP Systolic 129 mmHg BP Diastolic 80 mmHg Body Temperature 98.5 F Heart Rate 95 /min Respiratory Rate 18 /min Height 66 inches 5'6" Weight 196.00 lb BMI (Body Mass Index) 31.6 kg/m2 BSA (Body Surface Area) 1.98 m2 [place] body weight in kilograms 59 O2 % BldC Oximetry 95 % 10/28/2017 BP Systolic Sitting Right Arm 118 mmHg BP Diastolic Sitting Right Arm 72 mmHg Heart Rate 110 /min Respiratory Rate 18 /min Height 66 inches 5'6" Weight 198.00 lb BMI (Body Mass Index) 32.0 kg/m2 BSA (Body Surface Area) 1.99 m2 [place] body weight in kilograms 59 O2 % BldC Oximetry 96 % 10/28/2017 BP Systolic 122 mmHg BP Diastolic 79 mmHg Body Temperature 98.3 F Heart Rate 71 /min Height 66 inches 5'6" Weight 198.00 lb BMI (Body Mass Index) 32.0 kg/m2 BSA (Body Surface Area) 1.99 m2 [place] body weight in kilograms 59 O2 % BldC Oximetry 91 % 09/29/2017 BP Systolic 143 mmHg BP Diastolic 87 mmHg Heart Rate 89 /min Height 66 inches 5'6" Weight 198.00 lb BMI (Body Mass Index) 32.0 kg/m2 BSA (Body Surface Area) 1.99 m2 [place] body weight in kilograms 59 08/14/2017 BP Systolic 137 mmHg BP Diastolic 75 mmHg Body Temperature 98.0 F Heart Rate 69 /min Respiratory Rate 16 /min Height 66 inches 5'6" Weight 190.00 lb BMI (Body Mass Index) 30.7 kg/m2 BSA (Body Surface Area) 1.96 m2 [place] body weight in kilograms 59 O2 % BldC Oximetry 95 % Pain Level 0 08/14/2017 BP Systolic Sitting Left Arm 143 mmHg BP Diastolic Sitting Left Arm 83 mmHg Heart Rate 73 /min Respiratory Rate 16 /min Height 66 inches 5'6" Weight 191.00 lb BMI (Body Mass Index) 30.8 kg/m2 BSA (Body Surface Area) 1.96 m2 [place] body weight in kilograms 59 01/14/2017 BP Systolic Sitting Left Arm 118 mmHg BP Diastolic Sitting Left Arm 82 mmHg Heart Rate 100 /min Respiratory Rate 18 /min Height 66 inches 5'6" Weight 198.00 lb BMI (Body Mass Index) 32.0 kg/m2 BSA (Body Surface Area) 1.99 m2 [place] body weight in kilograms 59 O2 % BldC Oximetry 92 % 12/26/2016 BP Systolic Sitting Left Arm 128 mmHg BP Diastolic Sitting Left Arm 86 mmHg Heart Rate 60 /min Respiratory Rate 16 /min Height 66 inches 5'6" Weight 200.00 lb BMI (Body Mass Index) 32.3 kg/m2 BSA (Body Surface Area) 2.00 m2 [place] body weight in kilograms 59 12/10/2016 BP Systolic Sitting Right Arm 124 mmHg BP Diastolic Sitting Right Arm 88 mmHg Heart Rate 59 /min Respiratory Rate 16 /min Height 66 inches 5'6" Weight 202.00 lb BMI (Body Mass Index) 32.6 kg/m2 BSA (Body Surface Area) 2.01 m2 [place] body weight in kilograms 59 O2 % BldC Oximetry 95 % Room air 11/26/2016 BP Systolic Sitting Right Arm 125 mmHg BP Diastolic Sitting Right Arm 80 mmHg Heart Rate 70 /min Respiratory Rate 16 /min Height 66 inches 5'6" Weight 197.00 lb BMI (Body Mass Index) 31.8 kg/m2 BSA (Body Surface Area) 1.99 m2 [place] body weight in kilograms 59 11/04/2016 BP Systolic Sitting Left Arm 122 mmHg BP Diastolic Sitting Left Arm 80 mmHg Height 64 inches 5'4" Weight 195.00 lb BMI (Body Mass Index) 33.5 kg/m2 BSA (Body Surface Area) 1.94 m2 [place] body weight in kilograms 54 03/26/2016 BP Systolic Sitting Resting Right Arm 132 mmHg BP Diastolic Sitting Resting Right Arm 80 mmHg Heart Rate 69 /min Respiratory Rate 16 /min Height 66 inches 5'6" Weight 195.00 lb BMI (Body Mass Index) 31.5 kg/m2 BSA (Body Surface Area) 1.98 m2 04/21/2013 BP Systolic 118 mmHg BP Diastolic 70 mmHg Heart Rate 78 /min Respiratory Rate 18 /min Height 66 inches 5'6" Weight 179.00 lb O2 % BldC Oximetry 97 % 03/07/2013 BP Systolic 118 mmHg BP Diastolic 70 mmHg Body Temperature 97.4 F Height 66 inches 5'6" Weight 180.00 lb 01/11/2013 BP Systolic 108 mmHg BP Diastolic 70 mmHg Heart Rate 64 /min Height 66 inches 5'6" Weight 177.00 lb 12/28/2012 BP Systolic 124 mmHg BP Diastolic 70 mmHg Heart Rate 68 /min Height 66 inches 5'6" Weight 176.00 lb 11/26/2012 BP Systolic 102 mmHg BP Diastolic 68 mmHg Heart Rate 60 /min Height 66 inches 5'6" Weight 179.00 lb 11/02/2012 BP Systolic 118 mmHg BP Diastolic 72 mmHg Height 66 inches 5'6" Weight 178.00 lb 10/26/2012 BP Systolic 128 mmHg BP Diastolic 78 mmHg Heart Rate 68 /min Height 66 inches 5'6" Weight 180.00 lb 10/13/2012 BP Systolic 114 mmHg BP Diastolic 70 mmHg Body Temperature 98.4 F Height 66 inches 5'6" Weight 181.00 lb 09/24/2012 BP Systolic 126 mmHg BP Diastolic 80 mmHg Body Temperature 98.1 F Height 66 inches 5'6" Weight 187.00 lb Results Test Date Test Result H/L Range Note Basic Metabolic Panel 12/25/2017 Glucose 101 mg/dL 74-106 1 BUN 19 mg/dL High 7-18 1 Creatinine 0.9 mg/dL 0.6-1.3 1 Glom Filtration Rate, Estimate >60 mL/min >60 1 If >60 mL/min >60 1, 2 BUN/Creat 21.1 ratio 1 Sodium 142 mmol/L 136-145 1 Potassium 4.2 mmol/L 3.5-5.1 1 Chloride 107 mmol/L 98-107 1 Carbon Dioxide 29 mmol/L 21-32 1 Anion Gap 6 mEq/L Low 8-16 1 Calcium 9.5 mg/dL 8.5-10.1 1 Urine Culture 11/23/2017 Urine Culture URETHRAL ESPERANZA 3 Quantity > 100,000 CFU/mL 3, 4 [place] Fibrosure 11/02/2017 [place] Fibrosis Score 0.13 0.00-0.21 [place] Fibrosis Stage (SEE NOTE) 5 [place] Steatosis Score 0.77 High 0.00-0.30 [place] Steatosis Grade (SEE NOTE) 6 [place] Score 0.25 0.25 [place] Grade (SEE NOTE) 7 Height 66 in . Weight Measured 198 LBS . Ujdms-9-Tfruoowfvsrtc 181 mg/dL 110-276 Haptoglobin 174 mg/dL 34-200 Apolipoprotein A-1 161 mg/dL 116-209 Bilirubin,Total 0.2 mg/dL 0.0-1.2 GGT 115 IU/L High 0-60 Alt (SGPT) 28 IU/L 0-40 Alt (Sgot) P5P 27 IU/L 0-40 Cholesterol,Total 180 mg/dL 100-199 Glucose, Serum 105 mg/dL High 65-99 Triglycerides 158 mg/dL High 0-149 [place]man Interpretations: (SEE NOTE) 8 Fibrosis Scoring (SEE NOTE) 9 Steatosis Grading (SEE NOTE) 10 [place]man Scoring (SEE NOTE) 11 Hartman Limitations (SEE NOTE) 12 [place]man Comment 2 (SEE NOTE) 13 Height 66 Weight 198 Laboratory test finding 11/02/2017 Triglycerides 131 mg/dL <150 14 Gamma Glutamyl Transpeptidase 139 U/L High 5-85 Hepatitis C Antibody < 0.1 s/corat 0.0-0.9 15 Ceruloplasmin 11/02/2017 Ceruloplasmin 34.3 mg/dL 19.0-39.0 Height 66 Weight 198 Nucleotidase,5' 11/02/2017 Nucleotidase,5 6 IU/L 0-10 Height 66 Weight 198 Porphobilinogen,QN,Random 11/02/2017 Porphobilinogen,QN,Random 1.0 0.0- 2.0 16 Urin Urin mg/L Height 66 Weight 198 Mitochondrial (M2) 11/02/2017 Mitochondrial (M2) 10.1 units 0.0-20.0 17 Antibodies Antibodies Height 66 Weight 198 Complement C4, Serum 11/02/2017 Complement C4, Serum 37 mg/dL 14-44 Height 66 Weight 198 C1 Esterase Inhibitor 11/02/2017 C1 Esterase Inhibitor 36 mg/dL 21-39 18 Height 66 Weight 198 C1 Esterase Inhibitor 11/02/2017 C1 Esterase Inhibitor 84 %meanno . 19 Function Function Height 66 Weight 198 Xray 08/11/2017 CT, Abdomen & Pelvis W/O <pending> Contrast Nocturnal Oximetry 12/24/2016 Low Oximetry 84 % Low 93-98 20 Fio2 21 21-100 20 Heart Rate 66 BPM 20 Duration Of Study 372 MINUTES 20 Total Time Below 88% 3.2 MINUTES 20 Continuous Oximetry 12/24/2016 Oximetry 94 % 93-98 20 Fio2 21 21-100 20 Heart Rate 78 BPM 20 Patient Status RESTING 20 Laboratory test finding 12/11/2016 Thyroid Stim Hormone 61.20 uIU/mL High 0.30-4.20 21 Free T4 0.30 ng/dL Low 0.76-1.46 21 Laboratory test finding 03/26/2016 Triglycerides 125 mg/dL <150 22, 23 Ceruloplasmin 32.9 mg/dL 19.0-39.0 22 Hepatitis C Antibody 03/26/2016 Hepatitis C Antibody Nonreactive Nonreactive 22 Signal/Cutoff ratio < 0.02 <0.80 22, 24 Laboratory test finding 03/26/2016 Sedimentation Rate 55 mm/hr High 0-30 22 C-Reactive Protein,Cardiac 5.07 mg/L <3.0 22 Celiac Disease Comp AB Profile 03/26/2016 Immunoglobulin A 123 mg/dL 87- 352 22 Antigliadin Abs, IgG 2 units 0-19 22, 25 Antigliadin Abs, IgA 4 units 0-19 22, 26 Endomysial IgA Antibody Negative Negative 22 t-Transglutaminase IgA <2 U/mL 0-3 22, 27 t-Transglutaminase IgG 2 U/mL 0-5 22, 28 Basic Metabolic Panel 03/07/2013 Anion Gap 7.0 mmol/L 2-11 BUN/Creatinine Ratio 22.5 High 8-20 Blood Urea Nitrogen 18 mg/dL 6-24 Calcium 9.8 mg/dL 8.1-9.9 Chloride 104 mmol/L 101-111 Co2 Carbon Dioxide 29.0 mmol/L 22-32 Creatinine 0.80 mg/dL 0.50-1.40 Egfr 96.1 >60 29 Egfr Non- 74.7 >60 Glucose 95 mg/dL 70-100 Potassium 4.1 mmol/L 3.5-5.0 Sodium 140 mmol/L 133-145 Laboratory test finding 03/07/2013 TSH (Thyroid Stimulating 0.77 miu/mL 0.34-5.60 Horm) Vitamin B12 272 pg/mL 180-914 CBC No Diff 03/07/2013 Hematocrit 43 % 35-47 Hemoglobin 15.0 g/dL 12.0-16.0 Mean Corpuscular HGB Conc 35 g/dL 31-36 Mean Corpuscular Hemoglobin 33 pg High 27-31 Mean Corpuscular Volume 94 fL 80-97 Mean Platelet Volume 8 um3 7.4-10.4 Platelet Count 266 10^3/uL 150-450 Red Blood Count 4.52 10^6/uL 4.0-5.4 Red Cell Distribution Width 13 % 10.5-15 White Blood Count 8.8 10^3/uL 4.8-10.8 Comprehensive Metabolic Panel 01/19/2013 Alb/Glob 1.3 ratio Albumin 4.0 g/dL 3.5-5.0 Alkaline Phosphatase 110 U/L 50-136 Anion Gap 11 mEq/L 8-16 BUN 34 mg/dL High 5-23 BUN/Creat 34.0 ratio Bilirubin,Total 0.5 mg/dL 0.2-1.2 Calcium 9.3 mg/dL 8.5-10.1 Carbon Dioxide 27 mEq/L 18-29 Chloride 105 mmol/L 98-107 Creatinine 1.0 mg/dL 0.5-1.4 Globulin 3.2 g/dL 1.9-4.3 Glom Filtration Rate, Estimate >60 mL/min >60 Glucose 99 mg/dL 76-115 If >60 mL/min >60 30 Potassium 4.1 mmol/L 3.5-5.1 SGPT/Alt 23 U/L Low 30-65 Sgot/Ast 12 U/L Low 16-40 Sodium 139 mmol/L 136-145 Total Protein 7.2 g/dL 6.3-8.0 Laboratory test finding 01/19/2013 Bas% 0.2 % 0.0-1.1 Baso # 0.02 K/uL 0.0-0.1 Eo% 1.7 % 0.0-6.6 Eos # 0.14 K/uL 0.0-0.5 Hematocrit 36.9 % 36.0-46.1 Hemoglobin 13.0 gm/dL 11.6-15.8 Lymph # 2.29 K/uL 0.8-3.4 Lymph % 27.9 % 17.0-46.1 Mean Cell Volume 91.6 fl 80.9-99.0 Mean Corpuscular HGB 32.3 pg 25.9-32.7 Mean Corpuscular HGB Conc 35.2 g/dL High 30.8-34.3 Mean Platelet Volume 9.2 fL 8.9-12.4 [place] # 0.65 K/uL 0.3-0.9 [place] % 7.9 % 4.3-13.2 Neut# 5.11 K/uL 1.0-7.0 Neut% 62.3 % 40.4-72.8 Platelet Count 222 K/uL 155-360 Red Blood Count 4.03 M/uL 3.90-5.40 Red Cell Distri Width %CV 12.5 % 11.7-14.4 Red Cell Distri Width SD 41.2 fl 3-47 Troponin-I < 0.02 ng/mL 0.00-0.50 31 White Blood Count 8.2 K/uL 3.1-10.7 Urine Screen 01/19/2013 Urine Bilirubin - Dipstick Negative Negative Urine Blood Negative Negative Urine Clarity Clear Clear Urine Color Yellow Yellow Urine Glucose - Dipstick Negative mg/dL Negative Urine Ketone Negative mg/dL Negative Urine Leuk Esterase Negative Negative Urine Nitrite - Dipstick Negative Negative Urine PH 5.5 Low 6.5-7.5 Urine Protein - Dipstick Negative mg/dL Negative Urine Specific [place] 1.010 1.010-1.030 Urine Urobilinogen - Dipstick 0.2 E.U./dL 0.2-1.0 Urine Culture And 01/18/2013 Urine Culture (See Note) 32 Sensitivities GC/Chlamydia Amplified 01/18/2013 GC/Chlamydia Rna (See Note) 33 Rna Affirm Vaginal Dna Probe 01/18/2013 Affirm Vaginal Dna (See Note) 34 Probe CBC 01/05/2013 Hematocrit 37.3 % 36.0-46.1 Hemoglobin 12.8 gm/dL 11.6-15.8 Mean Cell Volume 92.8 fl 80.9-99.0 Mean Corpuscular HGB 31.8 pg 25.9-32.7 Mean Corpuscular HGB Conc 34.3 g/dL 30.8-34.3 Mean Platelet Volume 9.5 fL 8.9-12.4 Platelet Count 217 K/uL 155-360 Red Blood Count 4.02 M/uL 3.90-5.40 Red Cell Distri Width %CV 12.7 % 11.7-14.4 White Blood Count 6.3 K/uL 3.1-10.7 Basic Metabolic Panel 01/05/2013 Anion Gap 14 mEq/L 8-16 BUN 15 mg/dL 5-23 BUN/Creat 16.6 ratio Calcium 8.9 mg/dL 8.5-10.1 Carbon Dioxide 27 mEq/L 18-29 Chloride 105 mmol/L 98-107 Creatinine 0.9 mg/dL 0.5-1.4 Glom Filtration Rate, Estimate >60 mL/min >60 Glucose 93 mg/dL 76-115 If >60 mL/min >60 35 Potassium 4.0 mmol/L 3.5-5.1 Sodium 142 mmol/L 136-145 Laboratory test finding 01/05/2013 Troponin-I < 0.02 ng/mL 0.00-0.50 36 Laboratory test finding 01/05/2013 Basic Metabolic Panel See Note 37 Laboratory test finding 01/05/2013 Troponin-I < 0.02 ng/mL 0.00-0.50 38 Laboratory test finding 01/04/2013 Bas% 0.4 % 0.0-1.1 Baso # 0.03 K/uL 0.0-0.1 CK 70 U/L 26-190 Eo% 1.6 % 0.0-6.6 Eos # 0.12 K/uL 0.0-0.5 Hematocrit 38.2 % 36.0-46.1 Hemoglobin 13.2 gm/dL 11.6-15.8 Lymph # 2.43 K/uL 0.8-3.4 Lymph % 32.0 % 17.0-46.1 Mean Cell Volume 92.3 fl 80.9-99.0 Mean Corpuscular HGB 31.9 pg 25.9-32.7 Mean Corpuscular HGB Conc 34.6 g/dL High 30.8-34.3 Mean Platelet Volume 9.6 fL 8.9-12.4 [place] # 0.51 K/uL 0.3-0.9 [place] % 6.7 % 4.3-13.2 Neut# 4.51 K/uL 1.0-7.0 Neut% 59.3 % 40.4-72.8 Platelet Count 221 K/uL 155-360 Red Blood Count 4.14 M/uL 3.90-5.40 Red Cell Distri Width %CV 12.6 % 11.7-14.4 Red Cell Distri Width SD 40.9 fl 3-47 Troponin-I < 0.02 ng/mL 0.00-0.50 39 White Blood Count 7.6 K/uL 3.1-10.7 Laboratory test finding 01/04/2013 Troponin-I < 0.02 ng/mL 0.00-0.50 40 Basic Metabolic Panel 01/04/2013 Anion Gap 14 mEq/L 8-16 BUN 13 mg/dL 5-23 BUN/Creat 14.4 ratio Calcium 9.2 mg/dL 8.5-10.1 Carbon Dioxide 25 mEq/L 18-29 Chloride 105 mmol/L 98-107 Creatinine 0.9 mg/dL 0.5-1.4 Glom Filtration Rate, Estimate >60 mL/min >60 Glucose 98 mg/dL 76-115 If >60 mL/min >60 41 Potassium 4.1 mmol/L 3.5-5.1 Sodium 140 mmol/L 136-145 CBC With Manual Diff 11/26/2012 Abs Basophils 0 10^3/uL 0-0.2 Abs Eosinophils 0.1 10^3/uL 0-0.6 Abs Lymphocytes 1.9 10^3/uL 1.0-4.8 Abs Monocytes 0.5 10^3/uL 0-0.8 Abs Neutrophils 4.5 10^3/uL 1.5-7.7 Abs Nucleated RBC 0 10^3/uL Basophil % 1 % 0-2 Eosinophils % 3 % 0-6 Hematocrit 37 % 35-47 Hemoglobin 12.6 g/dL 12.0-16.0 Lymphocytes % 26 % 25-47 Mean Corpuscular HGB Conc 34 g/dL 31-36 Mean Corpuscular Hemoglobin 32 pg High 27-31 Mean Corpuscular Volume 94 fL 80-97 Mean Platelet Volume 8 um3 7.4-10.4 Monocytes % 5 % 0-13 Neutrophil % 65 % 38-83 Platelet Count 229 10^3/uL 150-450 RBC Morphology Normal Normal Red Blood Count 3.98 10^6/uL Low 4.0-5.4 Red Cell Distribution Width 13 % 10.5-15 White Blood Count 7.0 10^3/uL 4.8-10.8 Inr/Protime 11/26/2012 Inr 0.85 Low 0.87-0.97 Laboratory test finding 11/26/2012 Cytology Pap See Note 42 Laboratory test finding 11/18/2012 Lipoma See Note 43 Laboratory test finding 11/02/2012 Vitamin B12 205 pg/mL 180-914 Vitamin D, 25 Hydroxy 11/02/2012 25-Hydroxy Vitamin D 29 ng/mL 44 Total 25-Hydroxy Vitamin D2 5.9 ng/mL 25-Hydroxy Vitamin D3 23 ng/mL Laboratory test finding 10/17/2012 Amphetamines (Urine) Negative Barbiturates (Urine) Negative Bas% 0.3 % 0.0-1.1 Baso # 0.02 K/uL 0.0-0.1 Benzodiazepines (Urine) Negative CK 53 U/L 26-190 Cannabinoids (Urine) Negative Cocaine Metabolite (Urine) Negative Eo% 0.8 % 0.0-6.6 Eos # 0.05 K/uL 0.0-0.5 Hematocrit 37.4 % 36.0-46.1 Hemoglobin 13.1 gm/dL 11.6-15.8 Lymph # 1.99 K/uL 0.8-3.4 Lymph % 30.7 % 17.0-46.1 Mean Cell Volume 90.3 fl 80.9-99.0 Mean Corpuscular HGB 31.6 pg 25.9-32.7 Mean Corpuscular HGB Conc 35.0 g/dL High 30.8-34.3 Mean Platelet Volume 9.4 fL 8.9-12.4 Methadone (Urine) Negative [place] # 0.38 K/uL 0.3-0.9 [place] % 5.9 % 4.3-13.2 Neut# 4.05 K/uL 1.0-7.0 Neut% 62.3 % 40.4-72.8 Opiates (Urine) Negative Platelet Count 210 K/uL 155-360 Red Blood Count 4.14 M/uL 3.90-5.40 Red Cell Distri Width %CV 12.4 % 11.7-14.4 Red Cell Distri Width SD 40.0 fl 3-47 Troponin-I < 0.02 ng/mL 0.00-0.50 45 Urine Cutoffs * 46 White Blood Count 6.5 K/uL 3.1-10.7 Comprehensive Metabolic Panel 10/17/2012 Alb/Glob 1.1 ratio Albumin 3.8 g/dL 3.5-5.0 Alkaline Phosphatase 112 U/L 50-136 Anion Gap 13 mEq/L 8-16 BUN 10 mg/dL 5-23 BUN/Creat 10.0 ratio Bilirubin,Total 0.4 mg/dL 0.2-1.2 Calcium 9.3 mg/dL 8.5-10.1 Carbon Dioxide 26 mEq/L 18-29 Chloride 107 mmol/L 98-107 Creatinine 1.0 mg/dL 0.5-1.4 Globulin 3.6 g/dL 1.9-4.3 Glom Filtration Rate, Estimate >60 mL/min >60 Glucose 116 mg/dL High 76-115 If >60 mL/min >60 47 Potassium 3.5 mmol/L 3.5-5.1 SGPT/Alt 20 U/L Low 30-65 Sgot/Ast 11 U/L Low 16-40 Sodium 142 mmol/L 136-145 Total Protein 7.4 g/dL 6.3-8.0 Urine Screen 10/17/2012 Urine Bilirubin - Dipstick Negative Negative Urine Blood Negative Negative Urine Clarity Clear Clear Urine Color Yellow Yellow Urine Glucose - Dipstick Negative mg/dL Negative Urine Ketone Negative mg/dL Negative Urine Leuk Esterase Negative Negative Urine Nitrite - Dipstick Negative Negative Urine PH 6.0 Low 6.5-7.5 Urine Protein - Dipstick Negative mg/dL Negative Urine Specific [place] <=1.005 Low 1.010-1.030 Urine Urobilinogen - Dipstick 0.2 E.U./dL 0.2-1.0 Comprehensive Metabolic Panel 10/09/2012 Alb/Glob 1.1 ratio Albumin 3.7 g/dL 3.5-5.0 Alkaline Phosphatase 117 U/L 50-136 Anion Gap 12 mEq/L 8-16 BUN 11 mg/dL 5-23 BUN/Creat 11.0 ratio Bilirubin,Total 0.3 mg/dL 0.2-1.2 Calcium 8.7 mg/dL 8.5-10.1 Carbon Dioxide 27 mEq/L 18-29 Chloride 109 mmol/L High 98-107 Creatinine 1.0 mg/dL 0.5-1.4 Globulin 3.3 g/dL 1.9-4.3 Glom Filtration Rate, Estimate >60 mL/min >60 Glucose 95 mg/dL 76-115 If >60 mL/min >60 48 Potassium 3.9 mmol/L 3.5-5.1 SGPT/Alt 19 U/L Low 30-65 Sgot/Ast 10 U/L Low 16-40 Sodium 144 mmol/L 136-145 Total Protein 7.0 g/dL 6.3-8.0 Laboratory test finding 10/09/2012 Bas% 0.3 % 0.0-1.1 Baso # 0.02 K/uL 0.0-0.1 CK 61 U/L 26-190 Eo% 1.5 % 0.0-6.6 Eos # 0.11 K/uL 0.0-0.5 Hematocrit 37.0 % 36.0-46.1 Hemoglobin 12.9 gm/dL 11.6-15.8 Lymph # 2.33 K/uL 0.8-3.4 Lymph % 32.2 % 17.0-46.1 Magnesium 1.7 mg/dL 1.7-2.3 Mean Cell Volume 91.4 fl 80.9-99.0 Mean Corpuscular HGB 31.9 pg 25.9-32.7 Mean Corpuscular HGB Conc 34.9 g/dL High 30.8-34.3 Mean Platelet Volume 9.1 fL 8.9-12.4 [place] # 0.59 K/uL 0.3-0.9 [place] % 8.1 % 4.3-13.2 Neut# 4.19 K/uL 1.0-7.0 Neut% 57.9 % 40.4-72.8 Platelet Count 222 K/uL 155-360 Red Blood Count 4.05 M/uL 3.90-5.40 Red Cell Distri Width %CV 12.4 % 11.7-14.4 Red Cell Distri Width SD 40.5 fl 3-47 White Blood Count 7.2 K/uL 3.1-10.7 Lipid Profile (Trig/Chol/HDL) 09/24/2012 Cholesterol 178 mg/dL Less than 200 Cholesterol/HDL Ratio 3.4 Average 1-4.44 HDL Cholesterol 53 mg/dL 40-60 49 LDL Cholesterol 104.8 mg/dL High Less Than 100 50 Triglycerides 101 mg/dL 40-200 Comp Metabolic Panel 09/24/2012 Albumin 4.2 g/dL 3.6-5.4 Albumin/Globulin Ratio 1.8 1-3 Alkaline Phosphatase 104 U/L 30-110 Alt 17 U/L 14-54 Anion Gap 10.0 mmol/L 2-11 Ast 17 U/L 12-42 BUN/Creatinine Ratio 15.0 8-20 Blood Urea Nitrogen 15 mg/dL 6-24 Calcium 10.0 mg/dL High 8.1-9.9 Chloride 103 mmol/L 101-111 Co2 Carbon Dioxide 28.0 mmol/L 22-32 Creatinine 1.00 mg/dL 0.50-1.40 Egfr 74.6 >60 51 Egfr Non- 58.0 >60 Globulin 2.4 g/dL 2-4 Glucose 112 mg/dL High 70-100 Potassium 4.1 mmol/L 3.5-5.0 Sodium 141 mmol/L 133-145 Total Bilirubin 0.7 mg/dL 0.4-1.5 Total Protein 6.6 g/dL 6.2-8.1 CBC Auto Diff 09/24/2012 Abs Basophils 0 10^3/uL 0-0.2 Abs Eosinophils 0 10^3/uL 0-0.6 Abs Lymphocytes 2.0 10^3/uL 1.0-4.8 Abs Monocytes 0.4 10^3/uL 0-0.8 Abs Neutrophils 4.0 10^3/uL 1.5-7.7 Abs Nucleated RBC 0 10^3/uL Basophil % 0.5 % 0-2 Eosinophil % 0.7 % 0-6 Granulocyte % 61.7 % 38-83 Hematocrit 40 % 35-47 Hemoglobin 14.1 g/dL 12.0-16.0 Lymphocyte % 31.4 % 25-47 Mean Corpuscular HGB Conc 35 g/dL 31-36 Mean Corpuscular Hemoglobin 32 pg High 27-31 Mean Corpuscular Volume 92 fL 80-97 Mean Platelet Volume 8 um3 7.4-10.4 Monocyte % 5.7 % 1-9 Nucleated Red Blood Cells % 0.1 Platelet Count 257 10^3/uL 150-450 Red Blood Count 4.37 10^6/uL 4.0-5.4 Red Cell Distribution Width 13 % 10.5-15 White Blood Count 6.5 10^3/uL 4.8-10.8 Laboratory test finding 09/24/2012 Free T4 0.94 ng/mL 0.61-1.24 Hemoglobin A1c 5.7 % Less than 6.0 52 TSH (Thyroid Stimulating Horm) 0.97 miu/mL 0.34-5.60 Xray 06/11/2007 CT Abdomen & Pelvis W Out Contrast <pending> 1 R10.9 2 Note: Persistent reduction for 3 months or more in an eGFR <60 mL/min/1.73 m2 defines CKD. Patients with eGFR values >/=60 mL/min/1.73 m2 may also have CKD if evidence of persistent proteinuria is present. The original MDRD equation for estimated GFR is not valid for patients less than 18 years of age. Additional information may be found at www.kdoqi.org. 3 N13.39 4 > 100,000 CFU/mL 5 F0 - No fibrosis 6 S3 - Marked or Severe Steatosis 7 N0 - Not HARTMAN 8 Quantitative results of 10 biochemicals in combination with age, gender, height, and weight, are analyzed using a computational algorithm to provide a quantitative surrogate marker (0.0-1.0) of liver fibrosis (Metavir F0-F4), hepatic steatosis (0.0-1.0, S0-S3), and Non-Alcoholic Steato- Hepatitis (HARTMAN) (0.0-0.75, N0-N2). The absence of steatosis (S<0.38) precludes the diagnosis of HARTMAN. Fibrosis marker: In a study of 171 Non-Alcoholic Fatty Liver Disease (NAFLD) patients where 23% had significant NAFLD fibrosis (Metavir F2-F4) and 11% had cirrhosis by liver biopsy, a fibrosis result of >0.3 yielded a sensitivity of 83% and a specificity of 78% for the detection of significant fibrosis(1). Steatosis Marker: In a population of 744 patients (583 HCV, 18 HBV, 69 NAFLD, and 74 alcoholic disease patients), where 36% had significant steatosis (>5%) on a liver biopsy, a steatosis score >0.5 had a sensitivity of 71% and a specificity of 72% for identification of significant steatosis(2). HARTMAN marker: In a population of 257 NAFLD patients, where 62% had at least some HARTMAN by liver biopsy, a prediction of HARTMAN had a sensitivity of 88% for identifying HARTMAN and a specificity of 50%(3). 9 <0.21=Stage F0 - No fibrosis 0.21 - 0.27=Stage F0 - F1 0.27 - 0.31=Stage F1 - Portal fibrosis 0.31 - 0.48=Stage F1 - F2 0.48 - 0.58=Stage F2 - Bridging fibrosis with few septa 0.58 - 0.72=Stage F3 - Bridging fibrosis with many septa 0.72 - 0.74=Stage F3 - F4 >0.74=Stage F4 - Cirrhosis 10 < 0.30=S0 - No Steatosis 0.30 to 0.38=S0 - S1 0.38 to 0.48=S1 - Minimal Steatosis 0.48 to 0.57=S1 - S2 0.57 to 0.67=S2 - Moderate Steatosis 0.67 to 0.69=S2 - S3 > 0.69=S3 - Marked or Severe Steatosis 11 0.25=N0 - Not HARTMAN 0.50=N1 - Borderline or probable HARTMAN 0.75=N2 - HARTMAN 12 HARTMAN FibroSure is recommended for patients with suspected non-alcoholic fatty liver disease. It is not recommended for patients with other liver diseases. It is also not recommended in patients with Gilbert Disease, acute hemolysis, acute viral hepatitis, drug induced hepatitis, genetic liver disease, autoimmune hepatitis and/or extra- hepatic cholestasis. Any of these clinical situations may lead to inaccurate quantitative predictions of fibrosis. 13 This test was developed and its performance characteristics determined by [employer]. It has not been cleared or approved by the Food and Drug Administration. The FDA has determined that such clearance or approval is not necessary. For questions regarding this report please contact customer service at . References: 1. Burton Foreman et al. Diagnostic Value of Biochemical Markers (FibroTest) for the prediction of Liver Fibrosis in patients with Non-Alcoholic Fatty Liver Disease. BMC Gastroenterology 2006; 6:6. 2. Sher Hernandez. et al. The Diagnostic Value of Biomarkers (Steato Test) for the Prediction of Liver Steatosis. Comparative Hepatol. 2005; 4:10. 3. Sher Hernandez, Jenna Manrique, et al. Diagnostic value of biochemical markers (HARTMAN TEST) for the prediction of non alcohol steato hepatitis in patients with non- alcoholic fatty liver disease. BMC Gastroenterology 2006; 6:34 doi:10.1186/4206-747Z-9-34. 14 Reference Guidelines*: Normal: ............. < 150 mg/dL Borderline High: .... 150-199 mg/dL High: ............... 200-499 mg/dL Very High: .......... > 500 mg/dL * Source: National Cholesterol Education Program (NCEP) 15 INFCE Result Units: s/co ratio Negative: < 0.8 Indeterminate: 0.8 - 0.9 Positive: > 0.9 The CDC recommends that a positive HCV antibody result be followed up with a HCV Nucleic Acid Amplification test (865283). Performed at: [facility] [id number] Pantographer: Ashli Rosales MD, Phone: [phone] 16 This test was developed and its performance characteristics determined by [facility]. It has not been cleared or approved by the Food and Drug Administration. 17 Negative 0.0 - 20.0 Equivocal 20.1 - 24.9 Positive >24.9 Mitochondrial (M2) Antibodies are found in 90-96% of patients with primary biliary cirrhosis. 18 Performed at: [address] [id number] Pantographer: Shiva Nava MD, Phone: [phone] Performed at: [address] [id number] Pantographer: Ashli Rosales MD, Phone: [phone] 19 INFCE Result Units: %mean normal Abnormal <41 Equivocal 41 - 67 Normal >67 20 R09.02 HYPOXEMIA 21 Z85.850 E03.9 C73 E78.2 22 R93.2 R14.0 R10.9 23 Reference Guidelines*: Normal: ............. < 150 mg/dL Borderline High: .... 150-199 mg/dL High: ............... 200-499 mg/dL Very High: .......... > 500 mg/dL * Source: National Cholesterol Education Program (NCEP) 24 Antibodies to HCV not detected; does not exclude early acute HCV infection. 25 Negative 0 - 19 Weak Positive 20 - 30 Moderate to Strong Positive >30 26 Negative 0 - 19 Weak Positive 20 - 30 Moderate to Strong Positive >30 27 Negative 0 - 3 Weak Positive 4 - 10 Positive >10 Tissue Transglutaminase (tTG) has been identified as the endomysial antigen. Studies have demonstr- ated that endomysial IgA antibodies have over 99% specificity for gluten sensitive enteropathy. 28 Negative 0 - 5 Weak Positive 6 - 9 Positive >9 Performed at: [address] [id number] Pantographer: Ashli Rosales MD, Phone: [phone] 29 Because ethnic data is not always readily available, this report includes an eGFR for both -Americans and non- Americans. The National Kidney Disease Education Program (NKDEP) does not endorse the use of the MDRD equation for patients that are not between the ages of 18 and 70, are , have extremes of body size, muscle mass, or nutritional status, or are non- or non-. According to the National Kidney Foundation, irrespective of diagnosis, the stage of the disease is based on the level of kidney function: Stage Description GFR(mL/min/1.73 m(2)) 1 Kidney damage with normal or decreased GFR 90 2 Kidney damage with mild decrease in GFR 60- 89 3 Moderate decrease in GFR 30-59 4 Severe decrease in GFR 15-29 5 Kidney failure <15 (or dialysis) 30 Note: Persistent reduction for 3 months or more in an eGFR <60 mL/min/1.73 m2 defines CKD. Patients with eGFR values >/=60 mL/min/1.73 m2 may also have CKD if evidence of persistent proteinuria is present. The original MDRD equation for estimated GFR is not valid for patients less than 18 years of age. Additional information may be found at www.kdoqi.org. 31 0 - 0.5 ng/mL: No evidence of myocardial injury 0.6 - 1.4 ng/mL: Mild elevation, suggesting possible myocardial injury > 1.4 ng/mL: Consistent with myocardial injury 32 RUN DATE: 01/20/13 [facility] LAB LIVE PAGE 1 RUN TIME: [address] [place] [address] Specimen Inquiry ----- Name: LENKA EDGAR : [address]: Lori Jim DO Acct : [id number] Unit: [id number] AGE: 52 Location: [facility] Re01/18/13 SEX: F Status: DEP ER ----- SPEC: [id number] LEELA: 01/18/13-[address] [facility] [address]: Lori Jim DO REQ: [id number] RECD: 01/18/13 STATUS: BRI HERNÁNDEZ DR: Jenna Salgado MD _ SOURCE: URINE [facility]: ORDERED: Urine Culture ----- Procedure Result Verified Site ----- Urine Culture Final 01/20/13 ML Organism 1 NORMAL ESPERANZA [place] Count >100,000 (Many) CFU/ML ----- END OF REPORT * ML=Testing performed at Main Lab DEPARTMENT OF PATHOLOGY, [address] [place] [address] Eric Cornejo M.D. Director [facility] Permit # [id number] RUN DATE: 01/21/13 [facility] LAB LIVE PAGE 1 RUN TIME: [address] [place] [address] Specimen Inquiry ----- Name: HERVELENKA : [address]: Lori Jim DO Acct : [id number] Unit: [id number] AGE: 52 Location: [facility] Re01/18/13 SEX: F Status: DEP ER ----- SPEC: [id number] LEELA: 01/18/13-[address] [facility] [address]: Lori Jim DO REQ: [id number] RECD: 01/18/13 STATUS: BRI HERNÁNDEZ DR: Jenna Salgado MD _ SOURCE: ENDOCERVIX SPDESC: ORDERED: XOCHITL/Benam RNA ----- Procedure Result Verified Site ----- Chlamydia Trachomatis RNA Final 01/21/13-1420 ML NEGATIVE for Chlamydia trachomatis rRNA GC (N. gonorrhoeae) RNA Final 01/21/13-1412 ML NEGATIVE for Neisseria gonorrhoeae rRNA A negative result does not preclude the presence of a C. trachomatis or N. gonorrhoeae infection because results are dependent on adequate specimen collection, absence of inhibitors, and sufficient rRNA to be detected. Test results may be affected by improper specimen collection, improper storage, technical error, or specimen mixup. Limitations of the Procedure: The Aptima Combo 2 Assay is not intended for the evaluation of suspected sexual abuse or for other medico-legal indications. For those patients for whom a false positive result may have adverse psychosocial impact, the CDC recommends retesting by a method using an alternate technology. Therapeutic failure or success cannot be determined with the Aptima Combo 2 Assay since nucleic acid may persist following appropriate antimicrobial therapy. Results from the Aptima Combo 2 Assay should be interpreted in conjunction with other laboratory and clinical data available to the clinican. Performance characteristics for detecting C. trachomatis and CONTINUED ON NEXT PAGE * ML=Testing performed at Main Lab DEPARTMENT OF PATHOLOGY, [facility] [address] [place], [place] [address] Eric Cornejo M.D. Director [facility] Permit #[id number] RUN DATE: 01/21/13 [facility] LAB LIVE PAGE 2 RUN TIME: 1420 [facility] [employer] [place], [place] [address] Specimen Inquiry ----- Patient: LENKA EDGAR [id number] (Continued) ----- Specimen: [id number] Collected: 01/18/13 Received: 01/18/13 (Continued) ----- Procedure Result Verified Site ----- GC (N. gonorrhoeae) RNA Final (continued) 01/21/13-141 N. gonorrhoeae are derived from high prevalence populations. Positive results in low prevalence populations should be interpreted carefully with the understanding that the likelihood of a false positive may be higher than a true positive. ----- END OF REPORT * ML=Testing performed at Main Lab DEPARTMENT OF PATHOLOGY, [facility] [address] [place], [place] [address] Eric Cornejo M.D. Director [facility] Permit # [id number] RUN DATE: 01/19/13 [facility] LAB LIVE PAGE 1 RUN TIME: 1008 [address] [employer] [place], [place] [address] Specimen Inquiry ----- Name: LENKA EDGAR : [address]: Lori Jim DO Acct : [id number] Unit: [id number] AGE: 52 Location: [facility] Re01/18/13 SEX: F Status: DEP ER ----- SPEC: [id number] LEELA: 01/18/13-[address] [facility] [address]: Lori Jim DO REQ: [id number] RECD: 01/18/13 STATUS: BRI HERNÁNDEZ DR: Jenna Salgado MD _ SOURCE: VAGINAL SPDESC: ORDERED: Affirm ----- Procedure Result Verified Site ----- Affirm Vaginal DNA Probe Final 01/19/13-1008 ML Organism 1 Negative Trichomonas Organism 2 Negative Gardnerella Organism 3 Negative Valery The presence of G. vaginalis, although suggestive, is not diagnostic for bacterial vaginosis. Results should be interpreted in conjunction with other clinical and laboratory data available. Women with vaginal discharge should be evaluated for risk factors of cervicitis and pelvic inflammatory disease, toxic shock syndrome (S.aureus), and if present, evaluated for organisms not included in this assay such as N. gonorrhoeae, C. trachomatis, Mobiluncus, Mycoplasma and/or Prevotella. Mixed infections may occur. The performance of this test on patient specimens collected during or immediately after antimicrobial therapy is unknown. The presence or absence of Valery species, G. vaginalis or T. vaginalis cannot be used as a test for therapeutic success or failure. ----- END OF REPORT * ML=Testing performed at Main Lab DEPARTMENT OF PATHOLOGY, [address] [place] [address] Eric Cornejo M.D. Director [facility] Permit # [id number] 35 Note: Persistent reduction for 3 months or more in an eGFR <60 mL/min/1.73 m2 defines CKD. Patients with eGFR values >/=60 mL/min/1.73 m2 may also have CKD if evidence of persistent proteinuria is present. The original MDRD equation for estimated GFR is not valid for patients less than 18 years of age. Additional information may be found at www.kdoqi.org. 36 0 - 0.5 ng/mL: No evidence of myocardial injury 0.6 - 1.4 ng/mL: Mild elevation, suggesting possible myocardial injury > 1.4 ng/mL: Consistent with myocardial injury 37 @[email or web address].W/C13 38 0 - 0.5 ng/mL: No evidence of myocardial injury 0.6 - 1.4 ng/mL: Mild elevation, suggesting possible myocardial injury > 1.4 ng/mL: Consistent with myocardial injury 39 0 - 0.5 ng/mL: No evidence of myocardial injury 0.6 - 1.4 ng/mL: Mild elevation, suggesting possible myocardial injury > 1.4 ng/mL: Consistent with myocardial injury 40 0 - 0.5 ng/mL: No evidence of myocardial injury 0.6 - 1.4 ng/mL: Mild elevation, suggesting possible myocardial injury > 1.4 ng/mL: Consistent with myocardial injury 41 Note: Persistent reduction for 3 months or more in an eGFR <60 mL/min/1.73 m2 defines CKD. Patients with eGFR values >/=60 mL/min/1.73 m2 may also have CKD if evidence of persistent proteinuria is present. The original MDRD equation for estimated GFR is not valid for patients less than 18 years of age. Additional information may be found at www.kdoqi.org. 42 [facility]ology Laboratory [address] [place] [address], [address] [place] [address] CYTOLOGY REPORT Name: LENKA EDGAR : 1960 (Age: 52) Sex: F Location: [facility] Rec. # Date Collected: 11/26/2012 Billing #: [id number] Date Received: 2012 Physician(s): JENNA SALGADO MD Source of Specimen: ENDOCERVICAL/ ECTOCERVICAL THIN PREP Clinical Information: Date of Last Menstrual Period: None Provided Treatment History: Hysterectomy: 1995 Partial Specimen Adequacy: SATISFACTORY FOR EVALUATION. NO ENDOCERVICAL/TRANSFORMATION ZONE. General Categorization: NEGATIVE FOR INTRAEPITHELIAL LESION OR MALIGNANCY. tfn Electronic Signature Georgie F. Edward, [place] ([facility]) Reported: 11/30/2012 Cytology Outreach [facility] ICD-9 Code(s) V72.31 43 OPERATION/PROCEDURE Excision DIAGNOSIS: "LESION, MIDDLE BACK, EXCISION": LIPOMA. Lety GROSS Received in formalin labeled, "LIPOMA OF MIDDLE BACK" is a fragmented starkey-yellow, soft tissue measuring 5.8 x 5.5 x 1.9 cm. in aggregate. The surface of the larger piece is inked and is serially sectioned. On cut surface it appears to be mature adipose tissue without evidence of necrosis nor hemorrhage. Shellfish Sorter sections are submitted in one block. BLAISE/noah MICROSCOPIC Sections reveal mature adipose tissue with delicate capillaries. PRE OPERATIVE DIAGNOSIS Lipoma, middle back. REVIEW CODE CODE: I ----- ANISH Vargas MD 11/22/12 7626 ----- 44 -- REFERENCE VALUE -- 25-HYDROXY D TOTAL (D2+D3) Optimum levels in the normal population are 25-80 Test Performed by: [address] [address] Spray Blender: Ziyad Damon III, M.D. 45 0 - 0.5 ng/mL: No evidence of myocardial injury 0.6 - 1.4 ng/mL: Mild elevation, suggesting possible myocardial injury > 1.4 ng/mL: Consistent with myocardial injury 46 *THE SUBMITTED URINE SPECIMEN WAS SCREENED AT THE LISTED CUTOFFS DRUG CLASS INITIAL TEST LEVEL Amphetamines 1000 ng/mL Barbiturates 200 ng/mL Benzodiazepines 200 ng/mL Cannabinoids 50 ng/mL Cocaine Metabolite 300 ng/mL Methadone 300 ng /mL Opiates 300 ng/mL 47 Note: Persistent reduction for 3 months or more in an eGFR <60 mL/min/1.73 m2 defines CKD. Patients with eGFR values >/=60 mL/min/1.73 m2 may also have CKD if evidence of persistent proteinuria is present. The original MDRD equation for estimated GFR is not valid for patients less than 18 years of age. Additional information may be found at www.kdoqi.org. 48 Note: Persistent reduction for 3 months or more in an eGFR <60 mL/min/1.73 m2 defines CKD. Patients with eGFR values >/=60 mL/min/1.73 m2 may also have CKD if evidence of persistent proteinuria is present. The original MDRD equation for estimated GFR is not valid for patients less than 18 years of age. Additional information may be found at www.kdoqi.org. 49 HDL Interpretation: Undesirable: High Risk: Less than 40 MG/DL Desirable: Low Risk: Greater than 60 MG/DL 50 LDL Interpretation: Low Risk Optimal Level: LDL Less than 100 MG/DL Near or Above Optimal: LDL 100-129 MG/DL Borderline High Risk: LDL 130-159 MG/DL High Risk : LDL 160-189 MG/DL Very High Risk: LDL Greater than 189 MG/DL 51 Because ethnic data is not always readily available, this report includes an eGFR for both -Americans and non- Americans. The National Kidney Disease Education Program (NKDEP) does not endorse the use of the MDRD equation for patients that are not between the ages of 18 and 70, are , have extremes of body size, muscle mass, or nutritional status, or are non- or non-. According to the National Kidney Foundation, irrespective of diagnosis, the stage of the disease is based on the level of kidney function: Stage Description GFR(mL/min/1.73 m(2)) 1 Kidney damage with normal or decreased GFR 90 2 Kidney damage with mild decrease in GFR 60- 89 3 Moderate decrease in GFR 30-59 4 Severe decrease in GFR 15-29 5 Kidney failure <15 (or dialysis) 52 Therapeutic target for the treatment of diabetes Mellitus patients is <7% HBA1C, and in selective patients <6.0%.Please refer to [place] [employer] Diabetic care guidelines for further information. Procedures Date CPT Code Description Status Comment 04/30/2018 39503 EKG-Tracing And Report Completed 01/12/2018 00784 Breath Hydrogen Test Completed 11/09/2017 50841 Radiologic Exam Hip Completed Unilateral With Pelvis 2-3 Views 10/21/2017 65470 EGD With Biopsy Completed 10/09/2017 44546 Excision, tumor, soft tissue Completed back or flank 08/14/2017 84697 Measurement Post Voiding Completed Residual Urine By Ultrasound,Non-Imaging 12/03/2016 37439 Bronchospasm Provocation Completed Evaluation Multi Spirometric Determinati 12/03/2016 79404 Spirometry Completed 11/26/2016 79884 EKG-Tracing And Report Completed 03/17/2013 Colonoscopy Completed Document: 03/17/13 - Colonoscopy 12/02/2009 96360 Asp./Injection major joint Completed 04/11/2009 02334 EKG Interpretation And Report Completed Only 06/26/2008 98019 Stress Test Interpre And Completed Report Only 03/23/2008 Colonoscopy Completed Document: 03/23/08 - Colonoscopy Encounters Type Date Location Provider CPT E/M Dx Office Visit 04/30/2018 11:20a [place] [address] R07.9 R00.2 I49.3 E78.5 R94.31 Office Visit 04/15/2018 3:15[place] [address] K59.00 K31.84 K76.0 Office Visit 03/11/2018 10:30[place] [address] K31.84 K59.00 Office Visit 01/27/2018 3:30[place] [address] R10.9 K31.84 R14.0 K76.0 R94.5 K59.00 Office Visit 12/16/2017 4:00[place] [address] R10.9 K31.84 R14.0 K76.0 R94.5 K59.00 Office Visit 11/23/2017 10:00a Urology Hanna Douglas M.D. 38727 N13.39 N32.81 Office Visit 11/09/2017 10:15a [place] [address] M25.551 Office Visit 11/04/2017 11:00a Surgical Office Ramakrishna Hatch 11545 R10.31 ,FACS Office Visit 10/28/2017 1:[place] [address] R10.9 K29.80 R94.5 R14.0 K29.70 K21.0 Office Visit 09/29/2017 1:00p Surgical Office Ramakrishna Hatch MD,FACS 01410 D17.1 Office Visit 08/14/2017 9:45[place] [address] K59.00 R93.2 Office Visit 08/14/2017 11:30a Urology Hanna Douglas M.D. 57721 N13.39 Office Visit 01/14/2017 2:45p [place] [address] E03.9 E66.01 R09.02 Office Visit 12/26/2016 11:00a Cardiology Office David Wiley, 678[address] R09.02 Maikel, [facility] R06.02 I49.3 Office Visit 12/10/2016 2:00[place] [address] R09.02 E66.01 Office Visit 11/26/2016 1:00p [place] [address] I49.3 R06.02 E78.5 Office Visit 11/04/2016 10:00a Orthopaedic Office Yady Parada, 12982 M25.561 [facility] M17.11 Office Visit 03/26/2016 2:00[place] [address] R14.0 R10.9 K59.09 R93.2 Office Visit 01/05/2013 1:52p [place], [address] 786.50 PhD Office Visit 12/18/2006 12:30p [place] [address] 832.00 Office Visit 11/26/2006 9:15a [place] [address] 832.00 E885.9 Plan of Care Future Appointment(s):07/22/2018 1:15 pm - Doug Cano MD at GI04/30/2018 - Sondra Lopes, PAR07.9 Chest pain, unspecifiedNew Orders:Echocardiogram, Exercise StressComments:We will order a stress echo to evaluate the patient's ischemic potential.R00.2 PalpitationsNew Orders:48 Hour Holter MonitorComments: Will order a 48 hour Holter monitor to evaluate for arrhythmias.I49.3 Ventricular premature depolarizationNew Orders:48 Hour Holter MonitorComments: Will assess PVC burden with upcoming monitor.E78.5 Hyperlipidemia, unspecifiedComments:Followed by PCP.R94.31 Abnormal electrocardiogram [ECG] [EKG ]Comments:Avoid QT prolonging medications, such as fluoroquinolones.AllFollow up :After testing.
--- OUTSIDE RECORDS SUMMARY | 2018-05-02 12:47 | XMS REPORT ---
:1960 External Reference #:[id number] Author Organization [facility] 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 Cole Lopez PA Primary Care Physician Unavailable Payers Type Date Identification Numbers Payment Provider Subscriber Commercial Policy Number: [id number] [place] Medicaid Lenka Edgar PayID: [id number] [address] [place] [address] Medicaid Expires: 2013 Policy Number: [id number] Medicaid Lenka Edgar Group Name: 1 1 [address] PayID: [id number] [place] [address] Problems Date Description Provider Status Onset: 03/08/2013 [...] mouth prn Jenna jorge MD Reference #: [id number] Levothyroxine Hx Tablets 125 30tab 1 po [...] HCL Hx Tablets 50mg Zeus MD Maikol [employer]-S Hx Tablets 8.6-50mg Take Two Unknown /0000 [...] By Mouth AT Bedtime Nystatin Hx Cream [id number] Use as /0000 t/GM Directed Magnesium Oxide [...] Young /0000 s mouth twice a MD Popeey - day 03/12 Vital Signs Date Vital Result Comment 04/30/2018 BP Systolic Sitting Right Arm 120 mmHg BP Diastolic Sitting Right Arm 84 mmHg Heart Rate 65 /min Respiratory Rate 18 /min Height 66 inches 5'6" Weight 192.00 lb BMI (Body Mass Index) 31.0 kg/m2 BSA (Body Surface Area) 1.97 m2 [place] body weight in kilograms 59 O2 % BldC Oximetry 94 % Ora 04/15/2018 BP Systolic Sitting Left Arm 112 mmHg BP Diastolic Sitting Left Arm 77 mmHg Heart Rate 97 /min Respiratory Rate 16 /min Height 66 inches 5'6" Weight 191.00 lb BMI (Body Mass Index) 30.8 kg/m2 BSA (Body Surface Area) 1.96 m2 [place] body weight in kilograms 59 O2 % BldC Oximetry 97 % 03/11/2018 BP Systolic Sitting Left Arm 114 mmHg BP Diastolic Sitting Left Arm 80 mmHg Heart Rate 62 /min Respiratory Rate 18 /min Height 66 inches 5'6" Weight 194.00 lb BMI (Body Mass Index) 31.3 kg/m2 BSA (Body Surface Area) 1.97 m2 [place] body weight in kilograms 59 01/27/2018 BP Systolic Sitting Left Arm 116 mmHg BP Diastolic Sitting Left Arm 72 mmHg Heart Rate 67 /min Respiratory Rate 16 /min Height 66 inches 5'6" Weight 189.00 lb BMI (Body Mass Index) 30.5 kg/m2 BSA (Body Surface Area) 1.95 m2 [place] body weight in kilograms 59 O2 % BldC Oximetry 96 % 12/16/2017 BP Systolic Sitting Right Arm 122 mmHg BP Diastolic Sitting Right Arm 70 mmHg Heart Rate 88 /min Respiratory Rate 19 /min Height 66 inches 5'6" Weight 192.00 lb BMI (Body Mass Index) 31.0 kg/m2 BSA (Body Surface Area) 1.97 m2 [place] body weight in kilograms 59 O2 % BldC Oximetry 94 % 11/23/2017 BP Systolic 129 mmHg BP Diastolic 76 mmHg Body Temperature 98.3 F Heart Rate 80 /min Respiratory Rate 16 /min Height 66 inches 5'6" Weight 194.12 lb BMI (Body Mass Index) 31.3 kg/m2 BSA (Body Surface Area) 1.97 m2 [place] body weight in kilograms 59 O2 % BldC Oximetry 95 % Pain Level 0 11/04/2017 BP Systolic 129 mmHg BP Diastolic 80 mmHg Body Temperature 98.5 F Heart Rate 95 /min Respiratory Rate 18 /min Height 66 inches 5'6" Weight 196.00 lb BMI (Body Mass Index) 31.6 kg/m2 BSA (Body Surface Area) 1.98 m2 [place] body weight in kilograms 59 O2 % BldC Oximetry 95 % 10/28/2017 BP Systolic Sitting Right Arm 118 mmHg BP Diastolic Sitting Right Arm 72 mmHg Heart Rate 110 /min Respiratory Rate 18 /min Height 66 inches 5'6" Weight 198.00 lb BMI (Body Mass Index) 32.0 kg/m2 BSA (Body Surface Area) 1.99 m2 [place] body weight in kilograms 59 O2 % BldC Oximetry 96 % 10/28/2017 BP Systolic 122 mmHg BP Diastolic 79 mmHg Body Temperature 98.3 F Heart Rate 71 /min Height 66 inches 5'6" Weight 198.00 lb BMI (Body Mass Index) 32.0 kg/m2 BSA (Body Surface Area) 1.99 m2 [place] body weight in kilograms 59 O2 % BldC Oximetry 91 % 09/29/2017 BP Systolic 143 mmHg BP Diastolic 87 mmHg Heart Rate 89 /min Height 66 inches 5'6" Weight 198.00 lb BMI (Body Mass Index) 32.0 kg/m2 BSA (Body Surface Area) 1.99 m2 [place] body weight in kilograms 59 08/14/2017 BP Systolic 137 mmHg BP Diastolic 75 mmHg Body Temperature 98.0 F Heart Rate 69 /min Respiratory Rate 16 /min Height 66 inches 5'6" Weight 190.00 lb BMI (Body Mass Index) 30.7 kg/m2 BSA (Body Surface Area) 1.96 m2 [place] body weight in kilograms 59 O2 % BldC Oximetry 95 % Pain Level 0 08/14/2017 BP Systolic Sitting Left Arm 143 mmHg BP Diastolic Sitting Left Arm 83 mmHg Heart Rate 73 /min Respiratory Rate 16 /min Height 66 inches 5'6" Weight 191.00 lb BMI (Body Mass Index) 30.8 kg/m2 BSA (Body Surface Area) 1.96 m2 [place] body weight in kilograms 59 01/14/2017 BP Systolic Sitting Left Arm 118 mmHg BP Diastolic Sitting Left Arm 82 mmHg Heart Rate 100 /min Respiratory Rate 18 /min Height 66 inches 5'6" Weight 198.00 lb BMI (Body Mass Index) 32.0 kg/m2 BSA (Body Surface Area) 1.99 m2 [place] body weight in kilograms 59 O2 % BldC Oximetry 92 % 12/26/2016 BP Systolic Sitting Left Arm 128 mmHg BP Diastolic Sitting Left Arm 86 mmHg Heart Rate 60 /min Respiratory Rate 16 /min Height 66 inches 5'6" Weight 200.00 lb BMI (Body Mass Index) 32.3 kg/m2 BSA (Body Surface Area) 2.00 m2 [place] body weight in kilograms 59 12/10/2016 BP Systolic Sitting Right Arm 124 mmHg BP Diastolic Sitting Right Arm 88 mmHg Heart Rate 59 /min Respiratory Rate 16 /min Height 66 inches 5'6" Weight 202.00 lb BMI (Body Mass Index) 32.6 kg/m2 BSA (Body Surface Area) 2.01 m2 [place] body weight in kilograms 59 O2 % BldC Oximetry 95 % Room air 11/26/2016 BP Systolic Sitting Right Arm 125 mmHg BP Diastolic Sitting Right Arm 80 mmHg Heart Rate 70 /min Respiratory Rate 16 /min Height 66 inches 5'6" Weight 197.00 lb BMI (Body Mass Index) 31.8 kg/m2 BSA (Body Surface Area) 1.99 m2 [place] body weight in kilograms 59 11/04/2016 BP Systolic Sitting Left Arm 122 mmHg BP Diastolic Sitting Left Arm 80 mmHg Height 64 inches 5'4" Weight 195.00 lb BMI (Body Mass Index) 33.5 kg/m2 BSA (Body Surface Area) 1.94 m2 [place] body weight in kilograms 54 03/26/2016 BP [...] in . Weight Measured 198 LBS . Knhsc-4-Vvsopwayakeqz 181 mg/dL 110-276 Haptoglobin 174 mg/dL 34-200 [...] CT, Abdomen & Pelvis W/O <pending> Contrast Continuous Oximetry 12/24/2016 Oximetry 94 % 93-98 20 Fio2 21 21-100 20 Heart Rate 78 BPM 20 Patient Status RESTING 20 Nocturnal Oximetry 12/24/2016 Low Oximetry 84 % Low 93-98 20 Fio2 21 21-100 20 Heart Rate 66 BPM 20 Duration Of Study 372 MINUTES 20 Total Time Below 88% 3.2 MINUTES 20 Laboratory test finding 12/11/2016 Thyroid Stim Hormone 61.20 uIU/mL High 0.30-4.20 21 Free T4 0.30 ng/dL Low 0.76-1.46 21 Laboratory test finding 03/26/2016 Sedimentation Rate 55 mm/hr High 0-30 22 C-Reactive Protein,Cardiac 5.07 mg/L <3.0 22 Hepatitis C Antibody 03/26/2016 Hepatitis C Antibody Nonreactive Nonreactive 22 Signal/Cutoff ratio < 0.02 <0.80 22, 23 Celiac Disease Comp AB Profile 03/26/2016 Immunoglobulin A 123 mg/dL 87- 352 22 Antigliadin Abs, IgG 2 units 0-19 22, 24 Antigliadin Abs, IgA 4 units 0-19 22, 25 Endomysial IgA Antibody Negative Negative 22 t-Transglutaminase IgA <2 U/mL 0-3 22, 26 t-Transglutaminase IgG 2 U/mL 0-5 22, 27 Laboratory test finding 03/26/2016 Triglycerides 125 mg/dL <150 22, 28 Ceruloplasmin 32.9 mg/dL 19.0-39.0 22 CBC No Diff 03/07/2013 Hematocrit 43 % 35-47 Hemoglobin 15.0 g/dL 12.0-16.0 Mean Corpuscular HGB Conc 35 g/dL 31-36 Mean Corpuscular Hemoglobin 33 pg High 27-31 Mean Corpuscular Volume 94 fL 80-97 Mean Platelet Volume 8 um3 7.4-10.4 Platelet Count 266 10^3/uL 150-450 Red Blood Count 4.52 10^6/uL 4.0-5.4 Red Cell Distribution Width 13 % 10.5-15 White Blood Count 8.8 10^3/uL 4.8-10.8 Basic Metabolic Panel 03/07/2013 Anion Gap 7.0 [...] 0.34-5.60 Horm) Vitamin B12 272 pg/mL 180-914 Comprehensive Metabolic Panel 01/19/2013 Alb/Glob 1.3 ratio [...] 30.8-34.3 Mean Platelet Volume 9.2 fL 8.9-12.4 [place]anco # 0.65 K/uL 0.3-0.9 [place] % 7.9 % 4.3-13.2 Neut# 5.11 K/uL [...] - Dipstick Negative mg/dL Negative Urine Specific [place] 1.010 1.010-1.030 Urine Urobilinogen - Dipstick 0.2 [...] ng/mL 0.00-0.50 38 Laboratory test finding 01/04/2013 Troponin-I < 0.02 ng/mL 0.00-0.50 39 Laboratory test finding 01/04/2013 Bas% 0.4 % [...] 30.8-34.3 Mean Platelet Volume 9.6 fL 8.9-12.4 Blanco # 0.51 K/uL 0.3-0.9 Blanco % 6.7 % 4.3-13.2 Neut# 4.51 K/uL 1.0-7.0 Neut% 59.3 % 40.4-72.8 Platelet Count 221 K/uL 155-360 Red Blood Count 4.14 M/uL 3.90-5.40 Red Cell Distri Width %CV 12.6 % 11.7-14.4 Red Cell Distri Width SD 40.9 fl 3-47 Troponin-I < 0.02 ng/mL 0.00-0.50 40 White Blood Count 7.6 K/uL 3.1-10.7 Basic Metabolic Panel 01/04/2013 Anion Gap 14 [...] test finding 11/18/2012 Lipoma See Note 43 Vitamin D, 25 Hydroxy 11/02/2012 25-Hydroxy Vitamin D 29 ng/mL 44 Total 25-Hydroxy Vitamin D2 5.9 ng/mL 25-Hydroxy Vitamin D3 23 ng/mL Laboratory test finding 11/02/2012 Vitamin B12 205 pg/mL 180-914 Laboratory test finding 10/17/2012 Amphetamines (Urine) Negative [...] Volume 9.4 fL 8.9-12.4 Methadone (Urine) Negative [place]anco # 0.38 K/uL 0.3-0.9 [place] % 5.9 % 4.3-13.2 Neut# 4.05 K/uL [...] - Dipstick Negative mg/dL Negative Urine Specific [place] <=1.005 Low 1.010-1.030 Urine Urobilinogen - Dipstick 0.2 E.U./dL 0.2-1.0 Laboratory test finding 10/09/2012 Bas% 0.3 % [...] 30.8-34.3 Mean Platelet Volume 9.1 fL 8.9-12.4 [place] # 0.59 K/uL 0.3-0.9 Blanco % 8.1 % 4.3-13.2 Neut# 4.19 K/uL 1.0-7.0 Neut% 57.9 % 40.4-72.8 Platelet Count 222 K/uL 155-360 Red Blood Count 4.05 M/uL 3.90-5.40 Red Cell Distri Width %CV 12.4 % 11.7-14.4 Red Cell Distri Width SD 40.5 fl 3-47 White Blood Count 7.2 K/uL 3.1-10.7 Comprehensive Metabolic Panel 10/09/2012 Alb/Glob 1.1 ratio [...] mmol/L 136-145 Total Protein 7.0 g/dL 6.3-8.0 Lipid Profile (Trig/Chol/HDL) 09/24/2012 Cholesterol 178 mg/dL [...] developed and its performance characteristics determined by [employer]. It has not been cleared or approved [...] fatty liver disease. [facility] 2006; 6:34 doi:10.1186/3836-148J-4-34. 14 Reference Guidelines*: Normal: ............. < 150 [...] with a HCV Nucleic Acid Amplification test (201171). Performed at: [facility] [id number] Dumper Bailer Operator: Ashli Rosales MD, Phone: [phone] 16 This test was developed and its performance characteristics determined by [facility]. It has not been cleared or approved by the Food and Drug Administration. 17 Negative 0.0 - 20.0 Equivocal 20.1 - 24.9 Positive >24.9 Mitochondrial (M2) Antibodies are found in 90-96% of patients with primary biliary cirrhosis. 18 Performed at: [address] [id number] Dumper Bailer Operator: Shiva Nava MD, Phone: [phone] Performed at: [address] [id number] Dumper Bailer Operator: Ashli Rosales MD, Phone: [phone] INFCE Result Units: %mean normal Abnormal <41 Equivocal 41 - 67 Normal >67 20 R09.02 HYPOXEMIA 21 Z85.850 E03.9 C73 E78.2 22 R93.2 R14.0 R10.9 23 Antibodies to HCV not detected; does not exclude early acute HCV infection. 24 Negative 0 - 19 Weak Positive 20 - 30 Moderate to Strong Positive >30 25 Negative 0 - 19 Weak Positive 20 - 30 Moderate to Strong Positive >30 26 Negative 0 - 3 Weak Positive 4 - 10 Positive >10 Tissue Transglutaminase (tTG) has been identified as the endomysial antigen. Studies have demonstr- ated that endomysial IgA antibodies have over 99% specificity for gluten sensitive enteropathy. 27 Negative 0 - 5 Weak Positive 6 - 9 Positive >9 Performed at: [address] [id number] Dumper Bailer Operator: Ashli Rosales MD, Phone: [phone] Reference Guidelines*: Normal: ............. < 150 mg/dL Borderline High: .... 150-199 mg/dL High: ............... 200-499 mg/dL Very High: .......... > 500 mg/dL * Source: National Cholesterol Education Program (NCEP) 29 Because ethnic data is not always [...] with myocardial injury 32 RUN DATE: 01/20/13 [facility] LAB LIVE PAGE 1 RUN TIME: [address] [place] [address] Specimen Inquiry ----- Name: LENKA EDGAR : [address]: Lori Jim DO Acct : [id number] Unit: [id number] AGE: 52 Location: [facility] Re01/18/13 SEX: F Status: DEP ER ----- SPEC: [id number] LEELA: 01/18/13-1525 [facility] [address]: Lori Jim DO REQ: [id number] RECD: 01/18/13 STATUS: BRI HERNÁNDEZ DR: Jenna Salgado MD _ SOURCE: URINE [facility]: ORDERED: Urine Culture ----- Procedure Result Verified Site ----- Urine Culture Final 01/20/13 ML Organism 1 NORMAL ESPERANZA [place] Count >100,000 (Many) CFU/ML ----- END OF REPORT * ML=Testing performed at Main Lab DEPARTMENT OF PATHOLOGY, [address] [place] [address] Eric Cornejo M.D. Director [facility] Permit # [id number] RUN DATE: 01/21/13 [facility] LAB LIVE PAGE 1 RUN TIME: [address] [place] [address] Specimen Inquiry ----- Name: HERVELENKA : [address]: Lori Jim DO Acct : [id number] Unit: [id number] AGE: 52 Location: [facility] Re01/18/13 SEX: F Status: DEP ER ----- SPEC: [id number] LEELA: 01/18/13-160 [facility] DR: Lori Jim DO REQ: [id number] RECD: 01/18/13 STATUS: BRI HERNÁNDEZ DR: Jenna [...] performed at Main Lab DEPARTMENT OF PATHOLOGY, [facility] [employer] [place], [place] [address] Eric Cornejo M.D. Director [facility] Permit #[id number] RUN DATE: 01/21/13 [facility] LAB LIVE PAGE 2 RUN TIME: 1420 [facility] [employer] [employer] [place], [place] [address] Specimen Inquiry ----- Patient: LENKA EDGAR [id number] (Continued) ----- Specimen: [id number] Collected: 01/18/13 Received: 01/18/13 (Continued) ----- Procedure [...] performed at Main Lab DEPARTMENT OF PATHOLOGY, [facility] [employer] [place], [place] [address] Eric Cornejo M.D. Director [facility] Permit # [id number] RUN DATE: 01/19/13 [facility] LAB LIVE PAGE 1 RUN TIME: 1008 [address] [place], [place] [address] Specimen Inquiry ----- Name: LENKA EDGAR : [address]: Lori Jim DO Acct : [id number] Unit: [id number] AGE: 52 Location: [facility] Re01/18/13 SEX: F Status: DEP ER ----- SPEC: [id number] LEELA: 01/18/13-160 [facility] DR: Lori Jim DO REQ: [id number] RECD: 01/18/13 STATUS: BRI HERNÁNDEZ DR: Jenna [...] performed at Main Lab DEPARTMENT OF PATHOLOGY, [address] [place] [address] Eric Cornejo M.D. Director [facility] Permit # [id number] Note: Persistent reduction for 3 months [...] be found at [email or web address]. 42 Cytology Laboratory [address] [place] [address], [address] [place] [address] CYTOLOGY REPORT Name: LENKA EDGAR : 1960 (Age: 52) Sex: F Location: [facility] Med. Rec. # Date Collected: 11/26/2012 Billing #: [id number] Date Received: 2012 Physician(s): JENNA SALGADO MD Source of Specimen: ENDOCERVICAL/ ECTOCERVICAL THIN PREP Clinical Information: Date of Last Menstrual Period: None Provided Treatment History: Hysterectomy: 1995 Partial Specimen Adequacy: SATISFACTORY FOR EVALUATION. NO ENDOCERVICAL/TRANSFORMATION ZONE. General Categorization: NEGATIVE FOR INTRAEPITHELIAL LESION OR MALIGNANCY. tfn Electronic Signature Georgie F. Edward, [place] ([facility]) Reported: 11/30/2012 Cytology Outreach [facility] ICD-9 Code(s) V72.31 43 OPERATION/PROCEDURE Excision [...] tissue without evidence of necrosis nor hemorrhage. Resource Specialist Teacher sections are submitted in one block. BLAISE/noah MICROSCOPIC Sections reveal mature adipose tissue with delicate capillaries. PRE OPERATIVE DIAGNOSIS Lipoma, middle back. REVIEW CODE CODE: I ----- ANISH Vargas MD 11/22/12 1956 ----- 44 -- REFERENCE VALUE -- 25-HYDROXY D TOTAL (D2+D3) Optimum levels in the normal population are 25-80 Test Performed by: [address] [address] Burnishing Machine Operator: Ziyad Damon III, M.D. 45 0 - [...] and in selective patients <6.0%.Please refer to [place] [employer] Diabetic care guidelines for further information. Procedures Date CPT Code Description Status Comment 04/30/2018 35068 EKG-Tracing And Report Completed 01/12/2018 80304 Breath Hydrogen Test Completed 11/09/2017 27449 Radiologic Exam Hip Completed Unilateral With Pelvis 2-3 Views 10/21/2017 96015 EGD With Biopsy Completed 10/09/2017 67841 Excision, tumor, soft tissue Completed back or flank 08/14/2017 11298 Measurement Post Voiding Completed Residual Urine By Ultrasound,Non-Imaging 12/03/2016 93274 Bronchospasm Provocation Completed Evaluation Multi Spirometric Determinati 12/03/2016 07327 Spirometry Completed 11/26/2016 86005 EKG-Tracing And Report Completed 03/17/2013 Colonoscopy Completed Document: 03/17/13 - Colonoscopy 12/02/2009 20007 Asp./Injection major joint Completed 04/11/2009 48293 EKG Interpretation And Report Completed Only 06/26/2008 55565 Stress Test Interpre And Completed Report Only 03/23/2008 Colonoscopy Completed Document: 03/23/08 - Colonoscopy Encounters Type Date Location Provider CPT E/M Dx Office Visit 04/30/2018 11:20a [place] [address] R07.9 R00.2 I49.3 E78.5 R94.31 Office Visit 04/15/2018 3:15[place] [address] K59.00 K31.84 K76.0 Office Visit 03/11/2018 10:30[place] [address] K31.84 K59.00 Office Visit 01/27/2018 3:30[place] [address] R10.9 K31.84 R14.0 K76.0 R94.5 K59.00 Office Visit 12/16/2017 4:00[place] [address] R10.9 K31.84 R14.0 K76.0 R94.5 K59.00 Office Visit 11/23/2017 10:00a Urology Hanna Douglas M.D. 07066 N13.39 N32.81 Office Visit 11/09/2017 10:15a [place] [address] M25.551 Office Visit 11/04/2017 11:00a Surgical Office Ramakrishna Hatch 38205 R10.31 ,FACS Office Visit 10/28/2017 1:45[place] [address] R10.9 K29.80 R94.5 R14.0 K29.70 K21.0 Office Visit 09/29/2017 1:00p Surgical Office Ramakrishna Hatch MD,FACS 45285 D17.1 Office Visit 08/14/2017 9:45[place] [address] K59.00 R93.2 Office Visit 08/14/2017 11:30a Urology Hanna Douglas M.D. 97811 N13.39 Office Visit 01/14/2017 2:45p [place] [address] E03.9 E66.01 R09.02 Office Visit 12/26/2016 11:00a Cardiology Office David Wiley, [address] R09.02 Maikel, [facility] R06.02 I49.3 Office Visit 12/10/2016 2:00p [place] [address] R09.02 E66.01 Office Visit 11/26/2016 1:00p [place] [address] I49.3 R06.02 E78.5 Office Visit 11/04/2016 10:00a Orthopaedic Office Yady Parada, [address] [facility] M17.11 Office Visit 03/26/2016 2:00[place] [address] R14.0 R10.9 K59.09 R93.2 Office Visit 01/05/2013 1:52p [place], [address] 786.50 PhD Office Visit 12/18/2006 12:30p [place] [address] 832.00 Office Visit 11/26/2006 9:15a [place] [address] 832.00 E885.9 Plan of Care Future Appointment(s):07/22/2018 [...]
--- OUTSIDE RECORDS SUMMARY | 2018-05-02 12:47 | XMS REPORT ---
:1960 External Reference #:[id number] Author Organization [facility] Address [address], [address] [place] [address] Phone [phone] Care Team Providers Name Role Phone Cole Lopez PA Care Team Information Assistant Professor Of German Unavailable Cole Lopez PA Primary Care Physician Unavailable Payers Type Date Identification Numbers Payment Provider Subscriber Commercial Policy Number: [id number] [place] [employer] Lenka Edgar PayID: [id number] [address] [place] [address] Medicaid Expires: 2013 Policy Number: [id number] Medicaid Lenka Edgar Group Name: 1 1 [address] PayID: [id number] [place] [address] Problems Date Description Provider Status Onset: 03/08/2013 [...] Capsules 40mg 60cap 1 by mouth Salgado, /0000 s twice a day MD Jenna Pravastatin Active Tablets 20mg 30tab Take One Salgado, Sodium s Tablet By Jenna Mouth Every , MD Day Aspirin Active Tablets 81mg 1 by mouth Unknown /0000 DR every day Prazosin HCL Active Capsules 5mg Take Two Unknown /0000 Capsule By Mouth Every Day @ hs Oxybutynin Active Tablets 10mg 1 by mouth Unknown Chloride ER ER 24HR every day Meloxicam Active Tablets 15mg 1 by mouth Unknown /0000 every day with food Calcitriol Active Capsules 0.5mcg Take One Unknown /0000 Capsule By Mouth Every Day Senna Active Tablets 8.6mg 2 tabs daily Unknown /0000 Omeprazole Active Capsules 20mg Take One Unknown [address] DR Capsule By Mouth Daily Levothyroxine Active Tablets 125mcg Take One Unknown Sodium /0000 Tablet By Mouth Every Day Magnesium Oxide Active Tablets 400(241.3 Take One Unknown /0000 Mg) mg Tablet By Mouth Twice A Day For Muscle Spasm Polyethylene Active Powder 3350NF Mix 17GM In Unknown Glycol 3350 /0000 Liquid Two Times A Day as Needed For Constipation Neomycin Sulfate 03/03 Hx Tablets 500mg 28tab [...] 24HR s every day Abdoul with food M.DSharmaine Golytely 03/26 Hx Solution 236gm drink half R10.9 Rec the evening MD Popeye before and half the morning of the procedure (1 cup every 10') Gabapentin 06/14 Hx Capsules 300mg 1 tab po tid Salgado - as per Jenna neurology , note 06/2013 Zolmitriptan 05/18 Hx Tablets 5mg 9tabs 1 tab by mouth at Jenna magallon of MD headache, may repeat dose after 2 hours if headache not resolved Naproxen 12/28 Hx Tablets 375mg 60tab 1 po bid with Marianna s food MD Jenna Prazosin HCL Hx Capsules 1mg 120ca 4 Caps At hs Salgado ps MD Jenna Zolpidem Hx Tablets 10mg 30tab 1 tab by Marianna, Tartrate / s mouth prn Jenna jorge MD Reference #: [id number] Levothyroxine Hx Tablets 125 30tab 1 po qd Salgado, Sodium s MD Jenna Calcium Hx Tablets 600-400mg 30tab 1 po bid Salgado, Carbonate-Vitami / -Unit s Jenna Lima MD Omeprazole Hx Capsules 20mg 30cap [address] jhony Segundo MD 11/09 Meclizine HCL Hx Tablets 25mg 30tab Take One Salgado, s Tablet By Jenna - Mouth Three , MD 09/29 Times A Day as Needed For Vertigo Hydroxyzine HCL Hx Tablets 50mg 30tab Take Two Salgado, s Tablets By Jenna Mouth At , MD Bedtime as Needed Metoprolol Hx Tablets 25mg 30tab Take One Salgado, Tartrate s Tablet By Jenna Mouth Every , MD Day Gabapentin Hx Tablets 600mg 1 by mouth Unknown three times a day Senna Laxative Hx Tablets 8.6mg 2 tabs at Unknown / bedtime Miralax Hx Powder 3350NF 1 tablespoon Unknown in 8 ounces - of water a Calcitriol Hx Capsules 0.5mcg 1 by mouth Unknown every day - 09/29 Gavilyte-N With Hx Solution 420gm Take as Unknown Flavor Pack / Rec Directed For 1 Day Tramadol HCL Hx Tablets 50mg Zeus, /0000 MD Kaia Senexon-S Hx Tablets 8.6-50mg Take Two Unknown [...] Daily Dicyclomine HCL Hx Tablets 20mg Pb, /0000 MD Reinaldo Ondansetron Hx Tablets 4mg Pb, / Dispers MD Reinaldo Acidophilus/Citr Hx Tablets Take [...] By Mouth AT Bedtime Nystatin Hx Cream [id number] Use as Unknown /0000 t/GM Directed Magnesium Oxide Hx Capsules [...] wants to drink and drink it all Senexon-S 00 Hx Tablets 8.6-50mg Take Two Unknown /0000 Tablets By Mouth Every Day as Needed Neomycin Sulfate Hx Tablets 500mg 28tab 1 tabs by Young /0000 s mouth twice a MD Popeye - day 03/12 Vital Signs Date Vital Result Comment 04/15/2018 BP Systolic Sitting Left Arm 112 mmHg BP Diastolic Sitting Left Arm 77 mmHg Heart Rate 97 /min Respiratory Rate 16 /min Height 66 inches 5'6" Weight 191.00 lb BMI (Body Mass Index) 30.8 kg/m2 BSA (Body Surface Area) 1.96 m2 [place] body weight in kilograms 59 O2 % BldC Oximetry 97 % 03/11/2018 BP Systolic Sitting Left Arm 114 mmHg BP Diastolic Sitting Left Arm 80 mmHg Heart Rate 62 /min Respiratory Rate 18 /min Height 66 inches 5'6" Weight 194.00 lb BMI (Body Mass Index) 31.3 kg/m2 BSA (Body Surface Area) 1.97 m2 [place] body weight in kilograms 59 01/27/2018 BP Systolic Sitting Left Arm 116 mmHg BP Diastolic Sitting Left Arm 72 mmHg Heart Rate 67 /min Respiratory Rate 16 /min Height 66 inches 5'6" Weight 189.00 lb BMI (Body Mass Index) 30.5 kg/m2 BSA (Body Surface Area) 1.95 m2 [place] body weight in kilograms 59 O2 % BldC Oximetry 96 % 12/16/2017 BP Systolic Sitting Right Arm 122 mmHg BP Diastolic Sitting Right Arm 70 mmHg Heart Rate 88 /min Respiratory Rate 19 /min Height 66 inches 5'6" Weight 192.00 lb BMI (Body Mass Index) 31.0 kg/m2 BSA (Body Surface Area) 1.97 m2 [place] body weight in kilograms 59 O2 % BldC Oximetry 94 % 11/23/2017 BP Systolic 129 mmHg BP Diastolic 76 mmHg Body Temperature 98.3 F Heart Rate 80 /min Respiratory Rate 16 /min Height 66 inches 5'6" Weight 194.12 lb BMI (Body Mass Index) 31.3 kg/m2 BSA (Body Surface Area) 1.97 m2 [place] body weight in kilograms 59 O2 % BldC Oximetry 95 % Pain Level 0 11/04/2017 BP Systolic 129 mmHg BP Diastolic 80 mmHg Body Temperature 98.5 F Heart Rate 95 /min Respiratory Rate 18 /min Height 66 inches 5'6" Weight 196.00 lb BMI (Body Mass Index) 31.6 kg/m2 BSA (Body Surface Area) 1.98 m2 [place] body weight in kilograms 59 O2 % BldC Oximetry 95 % 10/28/2017 BP Systolic Sitting Right Arm 118 mmHg BP Diastolic Sitting Right Arm 72 mmHg Heart Rate 110 /min Respiratory Rate 18 /min Height 66 inches 5'6" Weight 198.00 lb BMI (Body Mass Index) 32.0 kg/m2 BSA (Body Surface Area) 1.99 m2 [place] body weight in kilograms 59 O2 % BldC Oximetry 96 % 10/28/2017 BP Systolic 122 mmHg BP Diastolic 79 mmHg Body Temperature 98.3 F Heart Rate 71 /min Height 66 inches 5'6" Weight 198.00 lb BMI (Body Mass Index) 32.0 kg/m2 BSA (Body Surface Area) 1.99 m2 [place] body weight in kilograms 59 O2 % BldC Oximetry 91 % 09/29/2017 BP Systolic 143 mmHg BP Diastolic 87 mmHg Heart Rate 89 /min Height 66 inches 5'6" Weight 198.00 lb BMI (Body Mass Index) 32.0 kg/m2 BSA (Body Surface Area) 1.99 m2 [place] body weight in kilograms 59 08/14/2017 BP Systolic 137 mmHg BP Diastolic 75 mmHg Body Temperature 98.0 F Heart Rate 69 /min Respiratory Rate 16 /min Height 66 inches 5'6" Weight 190.00 lb BMI (Body Mass Index) 30.7 kg/m2 BSA (Body Surface Area) 1.96 m2 [place] body weight in kilograms 59 O2 % BldC Oximetry 95 % Pain Level 0 08/14/2017 BP Systolic Sitting Left Arm 143 mmHg BP Diastolic Sitting Left Arm 83 mmHg Heart Rate 73 /min Respiratory Rate 16 /min Height 66 inches 5'6" Weight 191.00 lb BMI (Body Mass Index) 30.8 kg/m2 BSA (Body Surface Area) 1.96 m2 [place] body weight in kilograms 59 01/14/2017 BP Systolic Sitting Left Arm 118 mmHg BP Diastolic Sitting Left Arm 82 mmHg Heart Rate 100 /min Respiratory Rate 18 /min Height 66 inches 5'6" Weight 198.00 lb BMI (Body Mass Index) 32.0 kg/m2 BSA (Body Surface Area) 1.99 m2 [place] body weight in kilograms 59 O2 % BldC Oximetry 92 % 12/26/2016 BP Systolic Sitting Left Arm 128 mmHg BP Diastolic Sitting Left Arm 86 mmHg Heart Rate 60 /min Respiratory Rate 16 /min Height 66 inches 5'6" Weight 200.00 lb BMI (Body Mass Index) 32.3 kg/m2 BSA (Body Surface Area) 2.00 m2 [place] body weight in kilograms 59 12/10/2016 BP Systolic Sitting Right Arm 124 mmHg BP Diastolic Sitting Right Arm 88 mmHg Heart Rate 59 /min Respiratory Rate 16 /min Height 66 inches 5'6" Weight 202.00 lb BMI (Body Mass Index) 32.6 kg/m2 BSA (Body Surface Area) 2.01 m2 [place] body weight in kilograms 59 O2 % BldC Oximetry 95 % Room air 11/26/2016 BP Systolic Sitting Right Arm 125 mmHg BP Diastolic Sitting Right Arm 80 mmHg Heart Rate 70 /min Respiratory Rate 16 /min Height 66 inches 5'6" Weight 197.00 lb BMI (Body Mass Index) 31.8 kg/m2 BSA (Body Surface Area) 1.99 m2 [place] body weight in kilograms 59 11/04/2016 BP Systolic Sitting Left Arm 122 mmHg BP Diastolic Sitting Left Arm 80 mmHg Height 64 inches 5'4" Weight 195.00 lb BMI (Body Mass Index) 33.5 kg/m2 BSA (Body Surface Area) 1.94 m2 [place] body weight in kilograms 54 03/26/2016 BP [...] in . Weight Measured 198 LBS . [id number]-[id number] 181 mg/dL 110-276 Haptoglobin 174 mg/dL 34-200 [...] 17 Antibodies Antibodies Height 66 Weight 198 C1 Esterase Inhibitor 11/02/2017 C1 Esterase Inhibitor 84 %meanno . 18 Function Function Height 66 Weight 198 C1 Esterase Inhibitor 11/02/2017 C1 Esterase Inhibitor 36 mg/dL 21-39 19 Height 66 Weight 198 Complement C4, Serum 11/02/2017 Complement C4, Serum 37 mg/dL 14-44 Height 66 Weight 198 Xray 08/11/2017 CT, [...] Free T4 0.30 ng/dL Low 0.76-1.46 21 Hepatitis C Antibody 03/26/2016 Hepatitis C Antibody Nonreactive Nonreactive 22 Signal/Cutoff ratio < 0.02 <0.80 22, 23 Laboratory test finding 03/26/2016 Triglycerides 125 mg/dL <150 22, 24 Ceruloplasmin 32.9 mg/dL 19.0-39.0 22 Celiac Disease Comp AB Profile 03/26/2016 Immunoglobulin A 123 mg/dL 87- 352 22 Antigliadin Abs, IgG 2 units 0-19 22, 25 Antigliadin Abs, IgA 4 units 0-19 22, 26 Endomysial IgA Antibody Negative Negative 22 t-Transglutaminase IgA <2 U/mL 0-3 22, 27 t-Transglutaminase IgG 2 U/mL 0-5 22, 28 Laboratory test finding 03/26/2016 Sedimentation Rate 55 mm/hr High 0-30 22 C-Reactive Protein,Cardiac 5.07 mg/L <3.0 22 Laboratory test finding 03/07/2013 TSH (Thyroid Stimulating 0.77 miu/mL 0.34-5.60 Horm) Vitamin B12 272 pg/mL 180-914 Basic Metabolic Panel 03/07/2013 Anion Gap 7.0 mmol/L 2-11 BUN/Creatinine Ratio 22.5 High 8-20 Blood Urea Nitrogen 18 mg/dL 6-24 Calcium 9.8 mg/dL 8.1-9.9 Chloride 104 mmol/L 101-111 Co2 Carbon Dioxide 29.0 mmol/L 22-32 Creatinine 0.80 mg/dL 0.50-1.40 Egfr 96.1 >60 29 Egfr Non- 74.7 >60 Glucose 95 mg/dL 70-100 Potassium 4.1 mmol/L 3.5-5.0 Sodium 140 mmol/L 133-145 CBC No Diff 03/07/2013 Hematocrit 43 % 35-47 Hemoglobin 15.0 g/dL 12.0-16.0 Mean Corpuscular HGB Conc 35 g/dL 31-36 Mean Corpuscular Hemoglobin 33 pg High 27-31 Mean Corpuscular Volume 94 fL 80-97 Mean Platelet Volume 8 um3 7.4-10.4 Platelet Count 266 10^3/uL 150-450 Red Blood Count 4.52 10^6/uL 4.0-5.4 Red Cell Distribution Width 13 % 10.5-15 White Blood Count 8.8 10^3/uL 4.8-10.8 Urine Screen 01/19/2013 Urine Bilirubin - Dipstick Negative Negative Urine Blood Negative Negative Urine Clarity Clear Clear Urine Color Yellow Yellow Urine Glucose - Dipstick Negative mg/dL Negative Urine Ketone Negative mg/dL Negative Urine Leuk Esterase Negative Negative Urine Nitrite - Dipstick Negative Negative Urine PH 5.5 Low 6.5-7.5 Urine Protein - Dipstick Negative mg/dL Negative Urine Specific [place] 1.010 1.010-1.030 Urine Urobilinogen - Dipstick 0.2 E.U./dL 0.2-1.0 Laboratory test finding 01/19/2013 Bas% 0.2 % [...] 30.8-34.3 Mean Platelet Volume 9.2 fL 8.9-12.4 Garden # 0.65 K/uL 0.3-0.9 Garden % 7.9 % 4.3-13.2 Neut# 5.11 K/uL 1.0-7.0 Neut% 62.3 % 40.4-72.8 Platelet Count 222 K/uL 155-360 Red Blood Count 4.03 M/uL 3.90-5.40 Red Cell Distri Width %CV 12.5 % 11.7-14.4 Red Cell Distri Width SD 41.2 fl 3-47 Troponin-I < 0.02 ng/mL 0.00-0.50 30 White Blood Count 8.2 K/uL 3.1-10.7 Comprehensive Metabolic Panel 01/19/2013 Alb/Glob 1.3 ratio [...] 99 mg/dL 76-115 If >60 mL/min >60 31 Potassium 4.1 mmol/L 3.5-5.1 SGPT/Alt 23 U/L Low 30-65 Sgot/Ast 12 U/L Low 16-40 Sodium 139 mmol/L 136-145 Total Protein 7.2 g/dL 6.3-8.0 Urine Culture And 01/18/2013 Urine Culture (See Note) 32 Sensitivities GC/Chlamydia Amplified 01/18/2013 GC/Chlamydia Rna (See Note) 33 Rna Affirm Vaginal Dna Probe 01/18/2013 Affirm Vaginal Dna (See Note) 34 Probe Laboratory test finding 01/05/2013 Troponin-I < 0.02 ng/mL 0.00-0.50 35 Laboratory test finding 01/05/2013 Basic Metabolic See Note 36 Panel Laboratory test finding 01/05/2013 Troponin-I < 0.02 ng/mL 0.00-0.50 37 Basic Metabolic Panel 01/05/2013 Anion Gap 14 mEq/L 8-16 BUN 15 mg/dL 5-23 BUN/Creat 16.6 ratio Calcium 8.9 mg/dL 8.5-10.1 Carbon Dioxide 27 mEq/L 18-29 Chloride 105 mmol/L 98-107 Creatinine 0.9 mg/dL 0.5-1.4 Glom Filtration Rate, Estimate >60 mL/min >60 Glucose 93 mg/dL 76-115 If >60 mL/min >60 38 Potassium 4.0 mmol/L 3.5-5.1 Sodium 142 mmol/L 136-145 CBC 01/05/2013 Hematocrit 37.3 % 36.0-46.1 Hemoglobin 12.8 gm/dL 11.6-15.8 Mean Cell Volume 92.8 fl 80.9-99.0 Mean Corpuscular HGB 31.8 pg 25.9-32.7 Mean Corpuscular HGB Conc 34.3 g/dL 30.8-34.3 Mean Platelet Volume 9.5 fL 8.9-12.4 Platelet Count 217 K/uL 155-360 Red Blood Count 4.02 M/uL 3.90-5.40 Red Cell Distri Width %CV 12.7 % 11.7-14.4 White Blood Count 6.3 K/uL 3.1-10.7 Basic Metabolic Panel 01/04/2013 Anion Gap 14 mEq/L 8-16 BUN 13 mg/dL 5-23 BUN/Creat 14.4 ratio Calcium 9.2 mg/dL 8.5-10.1 Carbon Dioxide 25 mEq/L 18-29 Chloride 105 mmol/L 98-107 Creatinine 0.9 mg/dL 0.5-1.4 Glom Filtration Rate, Estimate >60 mL/min >60 Glucose 98 mg/dL 76-115 If >60 mL/min >60 39 Potassium 4.1 mmol/L 3.5-5.1 Sodium 140 mmol/L 136-145 Laboratory test finding 01/04/2013 Bas% 0.4 % [...] 30.8-34.3 Mean Platelet Volume 9.6 fL 8.9-12.4 Garden # 0.51 K/uL 0.3-0.9 Garden % 6.7 % 4.3-13.2 Neut# 4.51 K/uL 1.0-7.0 Neut% 59.3 % 40.4-72.8 Platelet Count 221 K/uL 155-360 Red Blood Count 4.14 M/uL 3.90-5.40 Red Cell Distri Width %CV 12.6 % 11.7-14.4 Red Cell Distri Width SD 40.9 fl 3-47 Troponin-I < 0.02 ng/mL 0.00-0.50 40 White Blood Count 7.6 K/uL 3.1-10.7 Laboratory test finding 01/04/2013 Troponin-I < 0.02 ng/mL 0.00-0.50 41 Laboratory test finding 11/26/2012 Cytology Pap See Note 42 CBC With Manual Diff 11/26/2012 Abs Basophils [...] Inr 0.85 Low 0.87-0.97 Laboratory test finding 11/18/2012 Lipoma See Note [...] Volume 9.4 fL 8.9-12.4 Methadone (Urine) Negative Garden # 0.38 K/uL 0.3-0.9 Garden % 5.9 % 4.3-13.2 Neut# 4.05 K/uL [...] - Dipstick Negative mg/dL Negative Urine Specific [place] <=1.005 Low 1.010-1.030 Urine Urobilinogen - Dipstick [...] 30.8-34.3 Mean Platelet Volume 9.1 fL 8.9-12.4 Garden # 0.59 K/uL 0.3-0.9 Garden % 8.1 % 4.3-13.2 Neut# 4.19 K/uL 1.0-7.0 Neut% 57.9 % 40.4-72.8 Platelet Count 222 K/uL 155-360 Red Blood Count 4.05 M/uL 3.90-5.40 Red Cell Distri Width %CV 12.4 % 11.7-14.4 Red Cell Distri Width SD 40.5 fl 3-47 White Blood Count 7.2 K/uL 3.1-10.7 Laboratory test finding 09/24/2012 Free T4 0.94 ng/mL 0.61-1.24 Hemoglobin A1c 5.7 % Less than 6.0 49 TSH (Thyroid Stimulating Horm) 0.97 miu/mL 0.34-5.60 CBC Auto Diff 09/24/2012 Abs Basophils 0 [...] 10.5-15 White Blood Count 6.5 10^3/uL 4.8-10.8 Comp Metabolic Panel 09/24/2012 Albumin 4.2 g/dL 3.6-5.4 Albumin/Globulin Ratio 1.8 1-3 Alkaline Phosphatase 104 U/L 30-110 Alt 17 U/L 14-54 Anion Gap 10.0 mmol/L 2-11 Ast 17 U/L 12-42 BUN/Creatinine Ratio 15.0 8-20 Blood Urea Nitrogen 15 mg/dL 6-24 Calcium 10.0 mg/dL High 8.1-9.9 Chloride 103 mmol/L 101-111 Co2 Carbon Dioxide 28.0 mmol/L 22-32 Creatinine 1.00 mg/dL 0.50-1.40 Egfr 74.6 >60 50 Egfr Non- 58.0 >60 Globulin 2.4 g/dL 2-4 Glucose 112 mg/dL High 70-100 Potassium 4.1 mmol/L 3.5-5.0 Sodium 141 mmol/L 133-145 Total Bilirubin 0.7 mg/dL 0.4-1.5 Total Protein 6.6 g/dL 6.2-8.1 Lipid Profile (Trig/Chol/HDL) 09/24/2012 Cholesterol 178 mg/dL Less than 200 Cholesterol/HDL Ratio 3.4 Average 1-4.44 HDL Cholesterol 53 mg/dL 40-60 51 LDL Cholesterol 104.8 mg/dL High Less Than 100 52 Triglycerides 101 mg/dL 40-200 Xray 06/11/2007 CT Abdomen & Pelvis W [...] developed and its performance characteristics determined by [employer]. It has not been cleared or approved [...] fatty liver disease. [facility] 2006; 6:34 doi:10.1186/2389-940X-5-34. 14 Reference Guidelines*: Normal: ............. < 150 [...] with a HCV Nucleic Acid Amplification test (800864). Performed at: - [facility] [id number] Push Bench Operator Helper: Ashli Rosales MD, Phone: [phone] 16 This test was developed and its performance characteristics determined by [employer]. It has not been cleared or approved by the Food and Drug Administration. 17 Negative 0.0 - 20.0 Equivocal 20.1 - 24.9 Positive >24.9 Mitochondrial (M2) Antibodies are found in 90-96% of patients with primary biliary cirrhosis. 18 INFCE Result Units: %mean normal Abnormal <41 Equivocal 41 - 67 Normal >67 19 Performed at: [facility] [address] [place], [place] [id number] Push Bench Operator Helper: Shiva Nava MD, Phone: [phone] Performed at: [facility] [id number] Push Bench Operator Helper: Ashli Rosales MD, Phone: [phone] 20 R09.02 HYPOXEMIA 21 Z85.850 E03.9 C73 E78.2 22 R93.2 R14.0 R10.9 23 Antibodies to HCV not detected; does not exclude early acute HCV infection. 24 Reference Guidelines*: Normal: ............. < 150 mg/dL Borderline High: .... 150-199 mg/dL High: ............... 200-499 mg/dL Very High: .......... > 500 mg/dL * Source: National Cholesterol Education Program (NCEP) 25 Negative 0 - 19 Weak Positive [...] 6 - 9 Positive >9 Performed at: [address] [id number] Push Bench Operator Helper: Ashli Rosales MD, Phone: [phone] 29 Because ethnic data is not always [...] 5 Kidney failure <15 (or dialysis) 30 0 - 0.5 ng/mL: No evidence of myocardial injury 0.6 - 1.4 ng/mL: Mild elevation, suggesting possible myocardial injury > 1.4 ng/mL: Consistent with myocardial injury 31 Note: Persistent reduction for 3 months or more in an eGFR <60 mL/min/1.73 m2 defines CKD. Patients with eGFR values >/=60 mL/min/1.73 m2 may also have CKD if evidence of persistent proteinuria is present. The original MDRD equation for estimated GFR is not valid for patients less than 18 years of age. Additional information may be found at www.kdoqi.org. 32 RUN DATE: 01/20/13 [facility] LAB LIVE PAGE 1 RUN TIME: [address] [place] [address] Specimen Inquiry ----- Name: LENKA EDGAR : [address]: Lori Jim DO Acct : [id number] Unit: [id number] AGE: 52 Location: [facility] Re01/18/13 SEX: F Status: DEP ER ----- SPEC: [id number] LEELA: 01/18/13-1525 [facility] [address]: Lori Jim DO REQ: [id number] RECD: 01/18/13 STATUS: BRI HERNÁNDEZ DR: Jenna Salgado MD _ SOURCE: URINE [facility]: ORDERED: Urine Culture ----- Procedure Result Verified Site ----- Urine Culture Final 01/20/13-948 ML Organism 1 NORMAL ESPERANZA [place] Count >100,000 (Many) CFU/ML ----- END OF REPORT * ML=Testing performed at Main Lab DEPARTMENT OF PATHOLOGY, [facility] [place], [place] [address] Eric Cornejo M.D. Director [facility] Permit # [id number] RUN DATE: 01/21/13 [facility] LAB LIVE PAGE 1 RUN TIME: [address] [place] [address] Specimen Inquiry ----- Name: LENKA EDGAR : [address]: Lori Jim DO Acct : [id number] Unit: [id number] AGE: 52 Location: [facility] Re01/18/13 SEX: F Status: DEP ER ----- SPEC: [id number] LEELA: 01/18/13-1605 [facility] [address]: Lori Jim DO REQ: [id number] RECD: 01/18/13 STATUS: BRI QUINTANILLA DR: Jenna Salgado MD _ SOURCE: ENDOCERVIX SPDESC: ORDERED: GC/Chlam RNA ----- Procedure Result Verified Site ----- [...] result may have adverse psychosocial impact, the [facility] recommends retesting by a method using an [...] performed at Main Lab DEPARTMENT OF PATHOLOGY, [facility] [employer] [place] [address] Eric Cornejo M.D. Director [facility] Permit #[id number] RUN DATE: 01/21/13 [facility] LAB LIVE PAGE 2 RUN TIME: 1420 [facility] [employer] [place], [place] [address] Specimen Inquiry ----- Patient: LENKA EDGAR [id number] (Continued) ----- Specimen: [id number] Collected: 01/18/13-160 Received: 01/18/13-1909 (Continued) ----- Procedure Result Verified Site ----- GC (N. gonorrhoeae) RNA Final (continued) 01/21/13-1412 N. gonorrhoeae are derived from high prevalence populations. Positive results in low prevalence populations should be interpreted carefully with the understanding that the likelihood of a false positive may be higher than a true positive. ----- END OF REPORT * ML=Testing performed at Main Lab DEPARTMENT OF PATHOLOGY, [address] [place] [address] Eric Cornejo M.D. [facility] Permit # [id number] RUN DATE: 01/19/13 [facility] LAB LIVE PAGE 1 RUN TIME: [address] [place], [place] [address] Specimen Inquiry ----- Name: LENKA EDGAR : [address]: Lori Jim DO Acct : [id number] Unit: [id number] AGE: 52 Location: [facility] Re01/18/13 SEX: F Status: DEP ER ----- SPEC: [id number] LEELA: 01/18/13-160 [facility] [address]: Lori Jim DO REQ: [id number] RECD: 01/18/13 STATUS: BRI HERNÁNDEZ DR: Jenna [...] performed at Main Lab DEPARTMENT OF PATHOLOGY, [address] [place] [address] Eric Cornejo M.D. Director [facility] Permit # [id number] 35 0 - 0.5 ng/mL: No evidence of myocardial injury 0.6 - 1.4 ng/mL: Mild elevation, suggesting possible myocardial injury > 1.4 ng/mL: Consistent with myocardial injury 36 @[email or web address]/[email or web address] 37 0 - 0.5 ng/mL: No evidence of myocardial injury 0.6 - 1.4 ng/mL: Mild elevation, suggesting possible myocardial injury > 1.4 ng/mL: Consistent with myocardial injury 38 Note: Persistent reduction for 3 months or more in an eGFR <60 mL/min/1.73 m2 defines CKD. Patients with eGFR values >/=60 mL/min/1.73 m2 may also have CKD if evidence of persistent proteinuria is present. The original MDRD equation for estimated GFR is not valid for patients less than 18 years of age. Additional information may be found at www.kdoqi.org. 39 Note: Persistent reduction for 3 months or more in an eGFR <60 mL/min/1.73 m2 defines CKD. Patients with eGFR values >/=60 mL/min/1.73 m2 may also have CKD if evidence of persistent proteinuria is present. The original MDRD equation for estimated GFR is not valid for patients less than 18 years of age. Additional information may be found at www.kdoqi.org. 40 0 - 0.5 ng/mL: No evidence of myocardial injury 0.6 - 1.4 ng/mL: Mild elevation, suggesting possible myocardial injury > 1.4 ng/mL: Consistent with myocardial injury 41 0 - 0.5 ng/mL: No evidence of myocardial injury 0.6 - 1.4 ng/mL: Mild elevation, suggesting possible myocardial injury > 1.4 ng/mL: Consistent with myocardial injury 42 Cytology Laboratory [address] [place] [address], [address] [place] [address] CYTOLOGY REPORT Name: LENKA EDGAR : 1960 (Age: 52) Sex: F Location: [facility]. Rec. # Date Collected: 11/26/2012 Billing #: [id number] Date Received: 2012 Physician(s): JENNA SALGADO MD Source of Specimen: ENDOCERVICAL/ ECTOCERVICAL THIN PREP Clinical Information: Date of Last Menstrual Period: None Provided Treatment History: Hysterectomy: 1995 Partial Specimen Adequacy: SATISFACTORY FOR EVALUATION. NO ENDOCERVICAL/TRANSFORMATION ZONE. General Categorization: NEGATIVE FOR INTRAEPITHELIAL LESION OR MALIGNANCY. tfn Electronic Signature LAY Whiting (ASCP) Reported: 11/30/2012 Cytology Outreach [facility] ICD-9 Code(s) V72.31 43 OPERATION/PROCEDURE Excision DIAGNOSIS: "LESION, MIDDLE BACK, EXCISION": LIPOMA. BLAISE/noah GROSS Received in formalin labeled, "LIPOMA OF MIDDLE BACK" is a fragmented starkey-yellow, soft tissue measuring 5.8 x 5.5 x 1.9 cm. in aggregate. The surface of the larger piece is inked and is serially sectioned. On cut surface it appears to be mature adipose tissue without evidence of necrosis nor hemorrhage. Regional Sales Representative sections are submitted in one block. BLAISE/noah MICROSCOPIC Sections reveal mature adipose tissue with delicate capillaries. PRE OPERATIVE DIAGNOSIS Lipoma, middle back. REVIEW CODE CODE: I ----- ANISH Vargas MD 11/22/12 1356 ----- 44 -- REFERENCE VALUE -- 25-HYDROXY D TOTAL (D2+D3) Optimum levels in the normal population are 25-80 Test Performed by: [address] [address] Raw Juice Weigher: Ziyad Damon III, M.D. 45 0 - [...] information may be found at [email or web address]. 49 Therapeutic target for the treatment of diabetes Mellitus patients is <7% HBA1C, and in selective patients <6.0%.Please refer to [place] [employer] Diabetic care guidelines for further information. 50 Because ethnic data is not always readily [...] 15-29 5 Kidney failure <15 (or dialysis) 51 HDL Interpretation: Undesirable: High Risk: Less than 40 MG/DL Desirable: Low Risk: Greater than 60 MG/DL 52 LDL Interpretation: Low Risk Optimal Level: LDL Less than 100 MG/DL Near or Above Optimal: LDL 100-129 MG/DL Borderline High Risk: LDL 130-159 MG/DL High Risk : LDL 160-189 MG/DL Very High Risk: LDL Greater than 189 MG/DL Procedures Date CPT Code Description Status Comment 01/12/2018 85040 Breath Hydrogen Test Completed 11/09/2017 18849 Radiologic Exam Hip Completed Unilateral With Pelvis 2-3 Views 10/21/2017 24687 EGD With Biopsy Completed 10/09/2017 46665 Excision, tumor, soft tissue Completed back or flank 08/14/2017 59169 Measurement Post Voiding Completed Residual Urine By Ultrasound,Non-Imaging 12/03/2016 81534 Bronchospasm Provocation Completed Evaluation Multi Spirometric Determinati 12/03/2016 64050 Spirometry Completed 11/26/2016 65221 EKG-Tracing And Report Completed 03/17/2013 Colonoscopy Completed Document: 03/17/13 - Colonoscopy 12/02/2009 85052 Asp./Injection major joint Completed 04/11/2009 66166 EKG Interpretation And Report Completed Only 06/26/2008 69848 Stress Test Interpre And Completed Report Only 03/23/2008 Colonoscopy Completed Document: 03/23/08 - Colonoscopy Encounters Type Date Location Provider CPT E/M Dx Office Visit 04/15/2018 3:15[place] [address] K59.00 K31.84 K76.0 Office Visit 03/11/2018 10:30[place] [address] K31.84 K59.00 Office Visit 01/27/2018 3:30[place] [address] R10.9 K31.84 R14.0 K76.0 R94.5 K59.00 Office Visit 12/16/2017 4:00[place] [address] R10.9 K31.84 R14.0 K76.0 R94.5 K59.00 Office Visit 11/23/2017 10:00a Urology Hanna Douglas M.D. 20116 N13.39 N32.81 Office Visit 11/09/2017 10:15a [place] [address] M25.551 Office Visit 11/04/2017 11:00a Surgical Office Ramakrishna Hatch 08388 R10.31 ,FACS Office Visit 10/28/2017 1:45[place] [address] R10.9 K29.80 R94.5 R14.0 K29.70 K21.0 Office Visit 09/29/2017 1:00p Surgical Office Ramakrishna Hatch MD,FACS 74200 D17.1 Office Visit 08/14/2017 9:45[place] [address] K59.00 R93.2 Office Visit 08/14/2017 11:30a Urology Hanna Douglas M.D. 51224 N13.39 Office Visit 01/14/2017 2:45p [place] [address] E03.9 E66.01 R09.02 Office Visit 12/26/2016 11:00a Cardiology Office David Wiley, 55396 R09.02 Maikel, [facility] R06.02 I49.3 Office Visit 12/10/2016 2:00[place] [address] R09.02 E66.01 Office Visit 11/26/2016 1:00p [place] [address] I49.3 R06.02 E78.5 Office Visit 11/04/2016 10:00a Orthopaedic Office Yady Parada, [address] [facility] M17.11 Office Visit 03/26/2016 2:00[place] [address] R14.0 R10.9 K59.09 R93.2 Office Visit 01/05/2013 1:52p [place], [address] 786.50 PhD Office Visit 12/18/2006 12:30p [place] [address] 832.00 Office Visit 11/26/2006 9:15a [place] [address] 832.00 E885.9 Plan of Care Future Appointment(s):07/22/2018 1:15 pm - Doug Cano MD at GI04/30/2018 11:20 am - Sondra Lopes PA at Cardiology Pckswt1004/15/2018 - Doug Cano MDK59.00 Constipation, unspecifiedComments:patient reports nothing is helping- lactulose, miralax, senna, patient given a MOVIPREP bowel cleansing kithave patient use over the next two daysif no positive results- arrange [facility] studyFollow up:3 ikuqvlP57.84 FrhpbfcxtbvvlN94.0 Fatty (change of) liver, not elsewhere classified
[2018-05-02 13:26] VITALS: BP 122/72
--- NOTE | 2018-05-02 13:45 | UC ---
Dizzy HPI HPI Summary: 57 year old female with history of GERD, depression, HLD here with complaint of dizziness. Reports as dizziness, non-vertiginous dizziness, feeling like she is going to fall. No motor deficit. Usually happens at night. Symptoms for 3 days. Intermittent with no eliciting factor or alleviating factor. Of note, she was seen in the ed for chest pain and saw a slot floorman 3 days ago for abnormal ekg. She is awaiting on holtor monitor and stress test. Today she denies any chest pain or SOB. - History Of Current Complaint Chief Complaint: UCDizziness Stated Complaint: DIZZINESS x4 DAYS Time Seen by Provider: 05/02/18 13:36 Hx Last Menstrual Period: 1995 Timing: Hours Severity Initially: Mild Severity Currently: Mild Pain Intensity: 0 - Allergies/Home Medications Allergies/Adverse Reactions: Allergies Allergy/AdvReac Type Severity Reaction Status Date / Time bee venom protein (honey bee) Allergy Severe Edema Verified 05/02/18 13:16 latex Allergy Intermediate Itching Verified 05/02/18 13:16 pregabalin [From Lyrica] Allergy Altered Verified 05/02/18 13:16 Mental Status morphine AdvReac Mild Itching Verified 05/02/18 13:16 Home Medications: Home Medications Meloxicam(NF) [Mobic(NF)] 15 mg PO DAILY 05/02/18 [History Confirmed 05/02/18] PMH/Surg Hx/FS Hx/Imm Hx Previously Healthy: Yes - Surgical History Surgical History: Yes Surgery Procedure, Year, and Place: 2 . left elbow surgery. partial hysterectomy. thyroidectomy. fatty tumor removed from back. COLONOSCOPY/ UPPER GI - Family History Known Family History: Positive: Hypertension - Social History Alcohol Use: None Substance Use Type: None Smoking Status (MU): Heavy Every Day Tobacco Smoker Have You Smoked in the Last Year: No Review of Systems All Other Systems Reviewed And Are Negative: Yes Constitutional: Positive: Negative Skin: Positive: Negative Eyes: Positive: Negative ENT: Positive: Negative Respiratory: Positive: Negative Cardiovascular: Positive: Negative Gastrointestinal: Positive: Negative Genitourinary: Positive: Negative Motor: Positive: Negative Neurovascular: Positive: Negative Musculoskeletal: Positive: Negative Neurological: Positive: Other Psychological: Positive: Negative Physical Exam Appearance: Well-Appearing, No Pain Distress Vital Signs: Initial Vital Signs Temp 36.6 C 05/02/18 13:19 Pulse 65 12/02/18 13:19 Resp 16 05/02/18 13:19 BP 122/72 05/02/18 13:19 Pulse Ox 99 05/02/18 13:19 Eye Exam: Normal ENT Exam: Normal ENT: Positive: Other - dry mucosal membrane Dental Exam: Normal Neck exam: Normal Neck: Positive: 1 Respiratory Exam: Normal Cardiovascular Exam: Normal Abdominal Exam: Normal Musculoskeletal Exam: Normal Neurological Exam: Normal Neurological: Positive: Other: - No nystagmus Nml FTN HTS Negative cerebellar signs Psychological Exam: Normal Skin Exam: Normal Dizzy Course/Dx - Course Course Of Treatment: Patient's signs and symptoms are not concerning for any central neurological etioloy or cardiac. She had dried moist membranes. Instructed patient to cut down soda and stop smoking. She will follow up with her PMD for further work up - Differential Dx/Diagnosis Differential Diagnosis/HQI/PQRI: Vasovagal Reaction, Other - hypovolemia Provider Diagnosis: Dizziness Discharge - Sign-Out/Discharge Documenting (check all that apply): Patient Departure All imaging exams completed and their final reports reviewed: No Studies - Discharge Plan Condition: Good Disposition: HOME Patient Education Materials: Dizziness (ED) Referrals: Jarrett Lopez PA [Primary Care Provider] - Additional Instructions: Follow up with your primary care doctor for evaluation of dizziness. - Billing Disposition and Condition Condition: GOOD Disposition: Home
== END 2018-05-02 13:52 | disposition home or self-care (01) ==
LOC: UCCORT 12:37
DX: R42 Dizziness and giddiness (principal); K21.9 Gastro-esophageal reflux disease without esophagitis; F32.9 Major depressive disorder, single episode, unspecified; E78.5 Hyperlipidemia, unspecified; Z88.8 Allergy status to other drugs, medicaments and biological substances; Z88.5 Allergy status to narcotic agent; F17.210 Nicotine dependence, cigarettes, uncomplicated
CPT/HCPCS: 99212; G0463

== ENCOUNTER 2019-03-31 11:54 | Emergency (ER) | payer OTHER ==
[2019-03-31 12:05] VITALS: BP 136/70
--- NOTE | 2019-03-31 12:25 | UC ---
Ear Complaint HPI - HPI Summary HPI Summary: Pt presents with c/o bilateral ear "fullness" and muffled sounds. Pt has hx of cerumen impaction. - History of Current Complaint Chief Complaint: UCEar Stated Complaint: BILATERAL EAR COMPLAINT Time Seen by Provider: 03/31/19 12:00 Hx Obtained From: Patient Hx Last Menstrual Period: 1995 ?: No Onset/Duration: Gradual Onset, Lasting Days, Still Present Severity Initially: Mild Severity Currently: Moderate Pain Intensity: 0 Associated Signs/Symptoms: Positive: Hearing Loss - Allergies/Home Medications Allergies/Adverse Reactions: Allergies Allergy/AdvReac Type Severity Reaction Status Date / Time bee venom protein (honey bee) Allergy Severe Edema Verified 03/31/19 12:00 latex Allergy Intermediate Itching Verified 03/31/19 12:00 pregabalin [From Lyrica] Allergy Altered Verified 03/31/19 12:00 Mental Status morphine AdvReac Mild Itching Verified 03/31/19 12:00 PMH/Surg Hx/FS Hx/Imm Hx Previously Healthy: Yes - Surgical History Surgical History: Yes Surgery Procedure, Year, and Place: 2 . left elbow surgery. partial hysterectomy. thyroidectomy. fatty tumor removed from back. COLONOSCOPY/ UPPER GI - Family History Known Family History: Positive: Hypertension - Social History Occupation: Unemployed Lives: With Family Alcohol Use: None Substance Use Type: None Smoking Status (MU): Former Smoker Have You Smoked in the Last Year: No Review of Systems All Other Systems Reviewed And Are Negative: Yes Constitutional: Positive: Negative Skin: Positive: Negative Eyes: Positive: Negative ENT: Positive: Ear Ache, Other - hearing loss Respiratory: Positive: Negative Cardiovascular: Positive: Negative Gastrointestinal: Positive: Negative Genitourinary: Positive: Negative Motor: Positive: Negative Neurovascular: Positive: Negative Musculoskeletal: Positive: Negative Neurological: Positive: Negative Psychological: Positive: Negative Is Patient Immunocompromised?: No Physical Exam Triage Information Reviewed: Yes Appearance: Well-Appearing Vital Signs: Initial Vital Signs Temp 97.1 F 03/31/19 12:01 Pulse 78 03/31/19 12:01 Resp 17 03/31/19 12:01 BP 136/70 03/31/19 12:01 Pulse Ox 96 03/31/19 12:01 Vital Signs Reviewed: Yes Eye Exam: Normal ENT: Positive: Other - cerumen bilateral ears Dental: Positive: Other: - missing teeth Neck exam: Normal Respiratory Exam: Normal Musculoskeletal Exam: Normal Neurological Exam: Normal Psychological Exam: Normal Skin Exam: Normal Ear Complaint Course/Dx - Course Course Of Treatment: bilateral ear irrigation with significant amount of cerumen removed in right ear canal, left ear canal small amount removed and small amount of cerumen unable to remove. - Differential Dx/Diagnosis Differential Diagnosis/HQI/PQRI: Cerumen Impaction Provider Diagnosis: Bilateral impacted cerumen Discharge ED - Sign-Out/Discharge Documenting (check all that apply): Patient Departure All imaging exams completed and their final reports reviewed: No Studies - Discharge Plan Condition: Stable Disposition: HOME Patient Education Materials: Cerumen Impaction (ED) Referrals: Jarrett Lopez PA [Primary Care Provider] - If Needed - Billing Disposition and Condition Condition: STABLE Disposition: Home
== END 2019-03-31 13:00 | disposition home or self-care (01) ==
LOC: UCCORT 11:54
DX: H61.23 Impacted cerumen, bilateral (principal); Z91.030 Bee allergy status; Z91.040 Latex allergy status; Z88.8 Allergy status to other drugs, medicaments and biological substances; Z88.5 Allergy status to narcotic agent; Z87.891 Personal history of nicotine dependence
CPT/HCPCS: 99213; G0463

== ENCOUNTER 2019-08-28 14:22 | Emergency (ER) | payer OTHER ==
--- OUTSIDE RECORDS SUMMARY | 2019-08-28 14:37 | XMS REPORT | Continuity of Care Document ---
:1960 External Reference #:[id number] Author Name Sondra Lopes PA (transmitted by agent of provider Cynthia Rosen) Address [address], [address] [address] Care Team Providers Name Role Phone Cole Lopez PA - Physician Care Team Information Processing Operator [phone] Manager Supply Problems Active Problems Provider Date Mixed hyperlipidemia Onset: 03/08/2013 Idiopathic peripheral neuropathy Jenna Cabral M.D. Onset: 10/13/2012 Hypothyroidism Jenna Cabral M.D. Onset: 10/13/2012 Essential hypertension Rose Raya, SARAVANAN Onset: 09/24/2012 Hypoxemia David Wiley M.D., Onset: 12/26/2016 FAC Dyspnea David Wiley M.D., Onset: 12/26/2016 FAC Premature beats David Wiley M.D., Onset: 12/26/2016 FAC Constipation Shaggy Nye MD Onset: 08/14/2017 Hydronephrosis Hanna Douglas M.D. Onset: 08/14/2017 Abnormal findings diagnostic imaging Shaggy Nye MD Onset: 08/14/2017 of liver+biliary tract Lipoma of skin Ramakrishna Hatch MD,FACS Onset: 09/29/2017 Abdominal pain Shaggy Nye MD Onset: 10/28/2017 Duodenitis Shaggy Nye MD Onset: 10/28/2017 Liver function tests abnormal Shaggy Nye MD Onset: 10/28/2017 Flatulence, eructation and gas pain Shaggy Nye MD Onset: 10/28/2017 Gastroduodenitis Shaggy Nye MD Onset: 10/28/2017 Gastro-esophageal reflux disease with Shaggy Nye MD Onset: 10/28/2017 esophagitis Right lower quadrant pain Ramakrishna Hatch MD,FACS Onset: 11/04/2017 Bladder muscle dysfunction - Hanna Douglas M.D. Onset: 11/23/2017 overactive Chronic nonalcoholic liver disease Shaggy Nye MD Onset: 12/16/2017 Gastroparesis syndrome Shaggy Nye MD Onset: 12/16/2017 Social History Type Date Description Comments Sex Unknown Tobacco Use Start: Unknown Never Smoked Cigarettes Smoking Status Reviewed: 11/04/18 Never Smoked Cigarettes ETOH Use Denies alcohol use ETOH Use Has consumed alcohol in the past Tobacco Use Start: Unknown Patient denies history of smoking Recreational Drug Use Denies Drug Use Exercise Type/Frequency Exercises sporadically Allergies, Adverse Reactions, Alerts Active Allergies Reaction Severity Comments Date Morphine 03/08/2013 Lasix 03/08/2013 Bee Sting 03/08/2013 Lyrica 11/04/2016 Inactive Allergies NKDA 11/13/2008 Medications Active Medications SIG Qnty Indications Ordering Date Provider Lactulose 15 milliliters by 900ml K59.00 Rachael, 03/11/2018 20GM/30ML mouth twice a day MD Doug Solution as needed Miralax 1 tablespoon with 1020units Shaggy Nye MD 01/27/2018 3350NF Powder large glass of water every day Fluoxetine HCL 1 by mouth twice 60caps Cabral, 40mg a day MD Jenna Capsules Pravastatin Sodium Take One Tablet 30tabs Cabral, 20mg By Mouth Every MD Jenna Tablets Day Aspirin 1 by mouth every Unknown 81mg Tablets DR day Oxybutynin Chloride ER 1 by mouth every Unknown day 10mg Tablets ER 24HR Meloxicam 1 by mouth every Unknown 15mg Tablets day with food Calcitriol Take One Capsule Unknown 0.5mcg By Mouth Every Capsules Day Senna 2 tabs daily Unknown 8.6mg Tablets Omeprazole Take One Capsule Unknown 20mg Capsules By Mouth Daily DR Magnesium Oxide Take One Tablet Unknown By Mouth Twice A 400(241.3Mg) mg Day For Muscle Tablets Spasm Meclizine HCL 1 by mouth three Unknown 25mg times a day as Chewtabs needed motion sickness, take before initial flight, as needed Cyclobenzaprine HCL 1 po every day Unknown 5mg Tablets Acetaminophen take 1-2 tablets Unknown 500mg by mouth every 4 Tablets to 6 hours Levothyroxine Sodium 1 by mouth every Unknown day 150mcg Tablets Immunizations Description No Information Available Vital Signs Date Vital Result Comment 09/22/2018 3:20pm BP Systolic Sitting Left Arm 110 mmHg BP Diastolic Sitting Left Arm 58 mmHg Heart Rate 65 /min Respiratory Rate 18 /min Height 66 inches 5'6" Weight 191.00 lb BMI (Body Mass Index) 30.8 kg/m2 BSA (Body Surface Area) 1.96 m2 [place] body weight in kilograms 59 kg O2 % BldC Oximetry 94 % 07/22/2018 1:02pm BP Systolic 130 mmHg BP Diastolic 86 mmHg Heart Rate 99 /min Respiratory Rate 20 /min Height 66 inches 5'6" Weight 193.00 lb BMI (Body Mass Index) 31.1 kg/m2 BSA (Body Surface Area) 1.97 m2 [place] body weight in kilograms 59 kg O2 % BldC Oximetry 97 % Results Description No Information Available Procedures Date Code Description Status 08/16/2019 44446 [employer] Heart Rhythm Completed Derived Data 04/19/2019 62865 Implant[employer] Heart Rhythm Completed Derived Data 03/17/2013 60255993 Colonoscopy Completed 03/23/2008 82426911 Colonoscopy Completed Medical Devices Description No Information Available Encounters Description No Information Available Assessments Date Code Description Provider 08/16/2019 R55 Syncope and collapse Gabe Kinney MD 08/16/2019 R55 Syncope and collapse Sondra Lopes PA 08/16/2019 Z95.9 Presence of cardiac and vascular implant and Gabe Kinney MD graft, unspecified 08/16/2019 Z95.9 Presence of cardiac and vascular implant and Sondra Lopes PA graft, unspecified 04/19/2019 R55 Syncope and collapse Gabe Kinney MD 04/19/2019 R55 Syncope and collapse Sondra Lopes PA 04/19/2019 Z95.9 Presence of cardiac and vascular implant and Gabe Kinney MD graft, unspecified 04/19/2019 Z95.9 Presence of cardiac and vascular implant and Sondra Lopes PA graft, unspecif Plan of Treatment Future Appointment(s):11/15/2019 11:15 am - Sondra Lopes PA at Cardiology Saotpx4009/23/2019 1:00 pm - Sondra Lopes PA at Cardiology Iugppb5809/22/2018 - Gabe Kinney, MDR55 Syncope and collapseComments:No recurrences. S/p ILR. No issues so far. 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 I have interrogated her device in office myself today with no significant dysrhythmias seen so far. I will bringher for in office check in 3 months. She understands to call immediately should she have any symptoms.Z95.9 Presence of cardiac and vascular implant and graft, unspecifComments:As aboveAllFollow up:3 months for device check and 1 year for routine OV Sooner appt if symptoms arise. Functional Status Functional Condition Comment Date Status Independent with all ADL's Active Glasses Active Mental Status Description No Information Available Referrals Description No Information Available
--- OUTSIDE RECORDS SUMMARY | 2019-08-28 14:37 | XMS REPORT | Continuity of Care Document ---
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 Heart Rhythm Completed Derived Data 03/17/2013 [id number] Colonoscopy Completed 03/23/2008 [id number] Colonoscopy Completed Medical Devices Description No Information Available Encounters Description No Information Available Assessments Date Code Description Provider 04/19/2019 R55 Syncope and collapse Gabe Kinney MD 04/19/2019 R55 Syncope and collapse Sondra Lopes PA 04/19/2019 Z95.9 Presence of cardiac and vascular implant and Gabe Kinney MD graft, unspecified 04/19/2019 Z95.9 Presence of cardiac and vascular implant and Sondra Lopes PA graft, unspecif Plan of Treatment Future Appointment(s):11/15/2019 11:15 am - Sondra Lopes PA at Cardiology Bvpplp6409/23/2019 1:00 pm - Sondra Lopes PA at Cardiology Tqzaow3209/22/2018 - Gabe Kinney, MDR55 Syncope and collapseComments:No recurrences. S/p ILR. No issues so far. 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 I have [...]
[2019-08-28 15:00] VITALS: BP 143/72
--- NOTE | 2019-08-28 15:09 | UC ---
Lower Extremity/Ankle HPI - HPI Summary HPI Summary: 58-year-old female who had right toe surgery in July 20. She states today she had some right ankle pain without any known injury. The area has been healing well. She recently had an appointment with her supervisor speech 3 days ago and everything was fine. She states today she feels like the ankle and foot are swollen and more tender. She denies any fever or chills. - History of Current Complaint Chief Complaint: UCLowerExtremity Stated Complaint: RIGHT ANKLE PAIN Time Seen by Provider: 08/28/19 15:01 Hx Obtained From: Patient Hx Last Menstrual Period: 1995 ?: No Onset/Duration: Gradual Onset, Lasting Hours Severity Initially: Moderate Severity Currently: Moderate Pain Intensity: 8 Aggravating Factor(s): Ambulation Alleviating Factor(s): Rest Able to Bear Weight: Yes - Allergies/Home Medications Allergies/Adverse Reactions: Allergies Allergy/AdvReac Type Severity Reaction Status Date / Time bee venom protein (honey bee) Allergy Severe Edema Verified 08/28/19 15:01 latex Allergy Intermediate Itching Verified 08/28/19 15:01 pregabalin [From Lyrica] Allergy Altered Verified 08/28/19 15:01 Mental Status morphine AdvReac Mild Itching Verified 08/28/19 15:01 Home Medications: Home Medications FLUoxetine CAP* [Prozac CAP*] 40 mg PO DAILY 05/24/12 [History Confirmed ] Pravastatin (NF) [Pravachol (NF)] 20 mg PO BEDTIME 05/24/12 [History Confirmed 08/28/19] Calcitriol CAP* [Rocaltrol CAP*] 0.5 mcg PO QAM 08/20/15 [History Confirmed ] Aspirin EC TAB* [Ecotrin EC Low Dose 81 MG*] 81 mg PO QAM 02/10/16 [History Confirmed 08/28/19] Omeprazole CAP (NF) [Prilosec CAP* 20 MG] 20 mg PO QAM 12/19/16 [History Confirmed 08/28/19] Levothyroxine TAB* [Synthroid 75 MCG TAB*] 100 mcg PO QAM 02/13/17 [History Confirmed 08/28/19] Prazosin 5 mg CAP [Minipress 5 mg CAP] 5 mg PO BEDTIME 02/13/17 [History Confirmed 08/28/19] Sennosides/Docusate Sodium [Senna-S 8.6-50 mg] 1 tab PO QPM 06/17/17 [History Confirmed 08/28/19] Magnesium Oxide [Magnesium] 400 mg PO DAILY 11/02/17 [History Confirmed 08/28/19 ] Oxybutynin Chloride [Oxybutynin Chloride ER] 10 mg PO DAILY 11/02/17 [History Confirmed 08/28/19] Polyethylene Glycol 3350 [Miralax] 17 gm PO DAILY 11/02/17 [History Confirmed ] Meloxicam(NF) [Mobic(NF)] 15 mg PO DAILY 05/02/18 [History Confirmed 08/28/19] Acetaminop/Codeine 30 MG TAB* [Tylenol/Codeine 30 MG TAB*] 1 - 2 tab PO Q6H PRN 08/28/19 [History Confirmed 08/28/19] PMH/Surg Hx/FS Hx/Imm Hx Previously Healthy: Yes Endocrine History: Thyroid Disease - Surgical History Surgical History: Yes Surgery Procedure, Year, and Place: 2 . left elbow surgery. partial hysterectomy. thyroidectomy. fatty tumor removed from back. right foot surgery. COLONOSCOPY/UPPER GI - Family History Known Family History: Positive: Hypertension - Social History Alcohol Use: None Substance Use Type: None Smoking Status (MU): Former Smoker Have You Smoked in the Last Year: No Review of Systems All Other Systems Reviewed And Are Negative: Yes Skin: Positive: Other - Patient feels like her foot and ankle are swollen and red today. Musculoskeletal: Positive: Other: - Patient complains of pain of the dorsum of her right foot and ankle pain. Is Patient Immunocompromised?: No Physical Exam Triage Information Reviewed: Yes Appearance: Well-Appearing, No Pain Distress, Well-Nourished Vital Signs: Initial Vital Signs Temp 98.5 F 08/28/19 14:55 Pulse 93 08/28/19 14:55 Resp 16 08/28/19 14:55 BP 143/72 08/28/19 14:55 Pulse Ox 95 08/28/19 14:55 Vital Signs Reviewed: Yes Musculoskeletal: Positive: Strength Intact, ROM Intact, Other: - Good peripheral pulses, neuro sensation and capillary refill. Good range of motion, Achilles is intact, I do not visualize any swelling or erythema of the ankle, foot or around the incision that's on the dorsum of her distal right foot. Over the incision is mildly tender on palpation but I don't see any streaking. There is resolving bruising from having the surgery but that is not any worse according to patient. I don't see any evidence of cellulitis. Neurological Exam: Normal Psychological Exam: Normal Skin: Positive: Other Lower Extremity Course/Dx - Course Course Of Treatment: At this point in time I placed an Yoandy bandage around the ankle for comfort. The patient can take Motrin for pain. She is to elevate as much as possible and apply heat to the sore areas. I don't feel there is any evidence of infection or cellulitis however because she states the pain today is something she has not had before I would like her to follow-up with the orthopedist on Thursday or Thursday if she has continued pain or any worsening symptoms. She is agreeable to this plan of action. - Differential Dx/Diagnosis Provider Diagnosis: Ankle pain, right, Right foot pain Discharge ED - Sign-Out/Discharge Documenting (check all that apply): Patient Departure All imaging exams completed and their final reports reviewed: No Studies - Discharge Plan Condition: Good Disposition: HOME Patient Education Materials: Arthralgia (ED) Referrals: Justin Rausch DPM [Doctor of Podiatric Medicine] - Jarrett Lopez PA [Primary Care Provider] - Additional Instructions: Elevate as much as possible, Ibuprofen 600mg every 8 hours with food, follow up with your Income Tax Consultant on Thursday if no improvement. Use the Yoandy bandage for comfort. - Billing Disposition and Condition Condition: GOOD Disposition: Home
== END 2019-08-28 15:27 | disposition home or self-care (01) ==
LOC: UCCORT 14:22
DX: M25.571 Pain in right ankle and joints of right foot (principal); E07.9 Disorder of thyroid, unspecified; Z79.890 Hormone replacement therapy; Z88.5 Allergy status to narcotic agent; Z88.8 Allergy status to other drugs, medicaments and biological substances; Z91.030 Bee allergy status; Z91.040 Latex allergy status; Z87.891 Personal history of nicotine dependence
CPT/HCPCS: 99211; G0463